=== PATIENT | female | born 1935 | race Caucasian/White ===

== ENCOUNTER 2016-10-25 18:50 | Inpatient (IN) | payer MEDICARE ==
[~2016-10-25] VITALS: Ht 147.3 cm; Wt 78.9 kg
[~2016-10-25 18:50] MED LIST: ACET325T9 PO; DIPH25CA3 PO; DIPH25CA58 PO; HYDR-2766 PO; HYDR1TAB PO; LISI40TA PO; METO100T2 PO; OMEP20TA8 PO; OMEP40CA5 PO; OXYC10TA PO; OXYC10TA45 PO; PANT40TA5 PO
--- NOTE | 2016-10-25 19:14 | PHYS DOC ---
Past Medical History Past Medical History: Anemia, Hypertension Past Surgical History: Cholecystectomy, Hysterectomy, Other Additional Past Surgical Histo: L knee, cataracts Alcohol Use: None Drug Use: None Adult General Chief Complaint Chief Complaint: HIP PAIN HPI HPI Patient is a 81 year old female who presents with a fall and right hip pain. She states she was in the bathroom and extension are she was on the floor. She states her socks slipped and she fell patient denies any trauma to her head or neck, she denies loss of consciousness. She denies back pain or abdominal pain. She does complain about right hip pain. Review of Systems Review of Systems Constitutional: Denies fever or chills [] Eyes: Denies change in visual acuity, redness, or eye pain [] HENT: Denies nasal congestion or sore throat [] Respiratory: Denies cough or shortness of breath [] Cardiovascular: No additional information not addressed in HPI [] GI: Denies abdominal pain, nausea, vomiting, bloody stools or diarrhea [] : Denies dysuria or hematuria [] Musculoskeletal: Denies back pain, positive for right hip pain Integument: Denies rash or skin lesions [] Neurologic: Denies headache, focal weakness or sensory changes [] Endocrine: Denies polyuria or polydipsia [] Current Medications Current Medications Allergies Allergies Allergies Coded Allergies Type Severity Reaction Last Updated Verified lactose Adverse Reaction Intermediate Nausea 09/09/15 Yes Physical Exam Physical Exam Constitutional: Well developed, well nourished, no acute distress, non-toxic appearance. [] HENT: Normocephalic, atraumatic, bilateral external ears normal, oropharynx moist, no oral exudates, nose normal. [] Eyes: PERRLA, EOMI, conjunctiva normal, no discharge. [] Neck: Normal range of motion, no tenderness, supple, no stridor. [] Cardiovascular:Heart rate regular rhythm, no murmur [] Lungs & Thorax: Bilateral breath sounds clear to auscultation [] Abdomen: Bowel sounds normal, soft, no tenderness, no masses, no pulsatile masses. [] Skin: Warm, dry, no erythema, no rash. [] Back: No tenderness, no CVA tenderness. [] Extremities: Tender palpation over the right hip with shortening and external rotation of the right leg, no cyanosis, no clubbing, ROM intact of left lower show many, no edema. Dorsal pedis pulse intact bilaterally Neurologic: Alert and oriented X 3, normal motor function, normal sensory function, no focal deficits noted. [] Psychologic: Affect normal, judgement normal, mood normal. [] Current Patient Data Vital Signs Vital Signs Date Time Temp Pulse Resp B/P (MAP) Pulse Ox O2 Delivery O2 Flow Rate FiO2 10/25/16 18:50 98.4 74 18 145/66 (92) 93 Room Air 98.4 EKG EKG [] Radiology/Procedures Radiology/Procedures Right hip x-ray shows intertrochanteric fracture of the right hip, no pelvis fracture noted, as interpreted by me Impressions: Hip fracture Course & Med Decision Making Course & Med Decision Making Pertinent Labs and Imaging studies reviewed. (See chart for details) Patient has a hip fracture, IV fentanyl has been ordered. Basic labs EKG and chest x-ray are pending at this time. Patient's being admitted Dr. Miner with consultation to Dr. Umaña. Interim orders have been written. Dragon Disclaimer Dragon Disclaimer This electronic medical record was generated, in whole or in part, using a voice recognition dictation system. Departure Departure Impression: Primary Impression: Hip fracture Disposition: ADMITTED INPATIENT Admitting Physician: Nimisha Miner Condition: STABLE Referrals: LESLEY BRODY MD (PCP) Problem Qualifiers Primary Impression: Hip fracture Encounter type: initial encounter Fracture type: closed Laterality: right Qualified Codes: S72.001A - Fracture of unspecified part of neck of right femur, initial encounter for closed fracture GIUSEPPE FLORES MD Oct 25, 2016 19:14
--- NOTE | 2016-10-25 20:13 | PDOC1 ---
History and Physical Date of Admission Date of Admission DATE: 10/25/16 TIME: 20:07 Identification/Chief Complaint Chief Complaint fall at home Problems: Source Source: Caregiver, Chart review, Patient History of Present Illness History of Present Illness 81 y.o very pleasant female, lives at home with dtr and uses assistive devices of ambulation prn, had a mechanical fall today from her bed to the bathroom, just 10 steps away. NO head trauma, was unable to bear weight on her Rt leg, ER, xray shows Rt intertrochanteric fx hence admitted, In pain, VS ok, labs not yet drawn, Ortho being called. Pt ahs hx TKA in past. PCP Dr. Pasquale Painting. LAst here admitted 2015 for sigmoid abscess, needing sigmoid sx and dcd to rehab , ALso hx diastolic heart failure, no COPD documented, non smoker non drinker, NO known CAD, Will also order CXR - baseline in case OR joseph AM given diastolic heart failure hx Past Medical History Cardiovascular: HTN, Hyperlipidemia, Aortic stenosis GI: Diverticulosis, GERD, GI bleed, Other Heme/Onc: Anemia NOS Hepatobiliary: No pertinent hx Psych: Other Musculoskeletal: Osteoarthritis Rheumatologic: No pertinent hx Infectious disease: No pertinent hx Renal/: No pertinent hx Endocrine: No pertinent hx Past Surgical History Past Surgical History: Appendectomy, Cholecystectomy, Cataract Removal, Total knee replacement Family History Family History: Cancer, Hypertension Social History Smoke: No ALCOHOL: none Drugs: None Current Medications Current Medications Active Scripts Active Reported Pantoprazole Sodium 40 Mg Tablet.dr 1 Tab PO DAILY08 Lisinopril 40 Mg Tablet 1 Tab PO DAILY08 Oxycodone Hcl 10 Mg Tablet 1 Tab PO BID Tylenol (Acetaminophen) 325 Mg Tablet 650 Mg PO DAILY Oxycontin (Oxycodone HCl) 10 Mg Tab.er.12h 1 Tab PO BID Omeprazole 20 Mg Tablet.dr 20 Mg PO DAILY Metoprolol Tartrate 100 Mg Tablet 100 Mg PO BID Diphenhydramine Hcl 25 Mg Capsule 25 Mg PO HS Allergies Allergies: Coded Allergies: lactose (Verified Adverse Reaction, Intermediate, Nausea, 09/09/15) ROS Review of System Rt hip pain, all else is neg, some nausea Physical Exam General: Alert, Oriented X3, Cooperative, No acute distress, Other (but in discomfort) HEENT: Atraumatic, PERRLA, EOMI Lungs: Clear to auscultation, Normal air movement Heart: S1S2, RRR, no thrills, no rubs, no gallops, no murmurs Cardiovascular: S1, S2 Breasts: Normal, Rt breast nml w/o mass, Lt breast nml w/o mass, Nipples normal Abdomen: Normal bowel sounds, Soft, No tenderness, No hepatosplenomegaly, No masses Rectal Exam: not examined PELVIC: Nml ext genitalia Extremities: Other (chronic leg swelling, RT leg externally rotated, palpable pulses) Skin: No rashes, No breakdown, No significant lesion Neuro: Normal gait, Normal speech, Strength at 5/5 X4 ext, Normal tone, Sensation intact, Cranial nerves 3-12 NL, Reflexes 2+ Psych/Mental Status: Mental status NL, Mood NL Vitals Vitals Vital Signs Date Time Temp Pulse Resp B/P (MAP) Pulse Ox O2 Delivery O2 Flow Rate FiO2 10/25/16 18:50 98.4 74 18 145/66 (92) 93 Room Air 98.4 VTE Prophylaxis Ordered VTE Prophylaxis Devices: Yes VTE Pharmacological Prophylaxi: Yes Assessment/Plan Assessment/Plan 1. RT intertrochanteric fx after mechanical fall, traumatic, closed 2. Chronic diastolic heart failure by documentation 3,. Geriatric fall risk 4. HTN, dyslipidemia - chronic stable 5. Hx elevated BS in past admits, (was on TPN0, not known DM - awaiting baseline labs' 6. HX sigmoid abscess with sigmoidectomy 2015 PLAN: Admit Ortho consult Check baseline labs including PT INR and baseline CXR AP PAin meds Awaiting home meds HOld off any NSAIDs or blood thinners in case OR joseph NPO post MN Liquid diet tonight (uninterested in food anyways tonight bec of acute events)\ Seen at [facility] and RN GREGORY LIND MD Oct 25, 2016 20:13
[2016-10-25] MEDS ORDERED: fentaNYL PF VIAL 100 MCG/2 ML VIAL IV PRN ×2 (20:15→20:45)
[2016-10-25] MEDS ORDERED: LABETALOL 20 MG/4 ML DISP.SYRIN. IVP PRN (20:15)
[2016-10-25 20:22] LABS: BASO # 0.1 x10^3/uL (0.0-0.2); BASO % 1 % (0-3); EOS % 1 % (0-3); HEMATOCRIT 40.5 % (36.0-47.0); HEMOGLOBIN 13.1 g/dL (12.0-15.5); LYMPH # 1.6 x10^3/uL (1.0-4.8); LYMPH % 14 % (24-48); MEAN CORPUSCULAR HEMOGLOBIN 26 pg (25-35); MEAN CORPUSCULAR HGB CONC 32 g/dL (31-37); MEAN CORPUSCULAR VOLUME 82 fL (79-100); MONO % 5 % (0-9); NEUT % 79 % (31-73); PLATELET COUNT 156 x10^3/uL (140-400); RED BLOOD COUNT 4.96 x10^6/uL (3.50-5.40); RED CELL DISTRIBUTION WIDTH 13.8 % (11.5-14.5); WHITE BLOOD COUNT 11.2 x10^3/uL (4.0-11.0)
[2016-10-25 20:31] LABS: PROTHROMBIN TIME PATIENT 12.3 SEC (11.7-14.0)
[2016-10-25 20:35] LABS: CALCIUM 8.8 mg/dL (8.5-10.1); CREATININE 1.4 mg/dL (0.6-1.0); GFR 35.9; MAGNESIUM 1.4 mg/dL (1.8-2.4); POTASSIUM 3.4 mmol/L (3.5-5.1)
[2016-10-25] MEDS ORDERED: ONDANSETRON PF 4 MG/2 ML VIAL. IV PRN (20:45)
[2016-10-25 20:48] LABS: CREATINE KINASE 50 U/L (26-192)
[2016-10-25 20:49] LABS: CKMB MASS < 0.5 ng/mL (0.0-3.6)
[2016-10-25] MEDS ORDERED: IV NORMAL SALINE 1000ML BAG 1,000 ML IV SCH (21:00)
[2016-10-25] MEDS ORDERED: NON FORMULARY ITEM (Oxycodone Hcl 1 TAB) PO SCH (21:00)
[2016-10-25] MEDS ORDERED: METOPROLOL TART IMMED RELEASE 50 MG TABLET. PO SCH (21:00)
[2016-10-25] MEDS: fentaNYL PF VIAL 100 MCG/2 ML VIAL IV PRN (21:09)
[2016-10-25] MEDS: METOPROLOL TART IMMED RELEASE 50 MG TABLET. PO SCH (21:28)
[2016-10-25] MEDS: diphenhydrAMINE HCL 25 MG CAPSULE PO SCH (21:28)
[2016-10-25] MEDS: MORPHINE SULFATE 2 MG/ML DISP.SYRIN. IV PRN ×2 (21:29→23:41)
[2016-10-25] MEDS: ONDANSETRON PF 4 MG/2 ML VIAL. IV PRN (21:29)
[2016-10-25] MEDS: oxyCODONE ER 10 MG TAB.ER.12H PO SCH (21:29)
[2016-10-25 23:00] VITALS: BP 161/67
[2016-10-25] MEDS ORDERED: oxyCODONE IR 5 MG TABLET PO PRN (23:30)
[2016-10-26] MEDS: MORPHINE SULFATE 2 MG/ML DISP.SYRIN. IV PRN (02:36)
[2016-10-26 03:00] VITALS: BP 165/76
[2016-10-26] MEDS: fentaNYL PF VIAL 100 MCG/2 ML VIAL IV PRN ×2 (03:01→23:45)
[2016-10-26 04:00] LABS: BASO % 0 % (0-3); EOS % 0 % (0-3); HEMATOCRIT 34.4 % (36.0-47.0); HEMOGLOBIN 11.5 g/dL (12.0-15.5); LYMPH # 0.8 x10^3/uL (1.0-4.8); LYMPH % 9 % (24-48); MEAN CORPUSCULAR HEMOGLOBIN 27 pg (25-35); MEAN CORPUSCULAR HGB CONC 33 g/dL (31-37); MEAN CORPUSCULAR VOLUME 80 fL (79-100); MONO % 5 % (0-9); NEUT % 85 % (31-73); PLATELET COUNT 143 x10^3/uL (140-400); RED BLOOD COUNT 4.32 x10^6/uL (3.50-5.40); RED CELL DISTRIBUTION WIDTH 13.6 % (11.5-14.5); WHITE BLOOD COUNT 8.4 x10^3/uL (4.0-11.0)
[2016-10-26 04:45] LABS: CALCIUM 8.2 mg/dL (8.5-10.1); CREATININE 1.3 mg/dL (0.6-1.0); GFR 39.1; POTASSIUM 3.5 mmol/L (3.5-5.1)
--- NOTE | 2016-10-26 05:38 | ACF ---
Admission Forms Criteria MUSCULOSKELETAL DISEASE GRG Clinical Indications for Admission to Inpatient Care (Place 'X' for any and all applicable criteria): Hospital admission is needed for appropriate care of the patient because of 1 or more of the following: [X ]I. Fracture, dislocation, or other musculoskeletal injury requiring inpatient care(medical) as indicated by 1 or more of the following(4)(5)(6)(7) [ ]a) Vertebral fracture requiring observation for instability or neurologic compromise (8) [ ]b) Compartment syndrome (proven or cannot be ruled out during observation level of care) (9) [ ]c) Limb-threatening injury [ ]d) Major injury requiring inpatient stabilization such as traction initiation or external fixation before internal fixation or closure of complex or open fracture [ X]e) Major injury requiring inpatient treatment after emergency or observation level care (as appropriate) [ ]f) Severe pain requiring acute inpatient management [ ]g) Injury with suspicion of abuse or neglect (eg., child, dependent elderly) [ ]II. Newly diagnosed or suspected bone, joint, or orthopedic device infection (e.g., osteomyelitis, septic arthritis) needing 1 or more of the following(1)(2)(3) [ ]a) IV antibiotics that cannot be initiated in other than inpatient setting (e.g., patient too unstable or home infusion not available) [ ]b) Device removal or replacement [ ]c) Bone or soft tissue debridement [ ]d) Joint drainage (drain placement or repetitive aspirations) [ ]III. Severe rheumatologic disease (e.g., systemic lupus erythematosus, rheumatoid arthritis) with complications or comorbidities (Also use Optimal Recovery Care Criteria or General Recovery Criteria as appropriate on the basis of predominant condition), including 1 or more of the following( 10)(11)(12)(13) [ ]a) Severe infection (e.g., [employer]OP[employer] infection, sepsis) (14) [ ]b) Respiratory complications, including 1 or more of the following : [ ]i) Pleural effusion with respiratory compromise [ ]ii) Pulmonary hypertension with congestive failure [ ]iii) Respiratory failure [ ]iv) Pulmonary hemorrhage (15) [ ]c) Hematologic disease, including 1 or more of the following: [ ]i) Coagulopathy with bleeding [ ]ii) Thrombosis with hypercoagulable state [ ]iii) Thrombotic thrombocytopenic purpura [ ]d) Cerebritis with seizures, psychosis, or other severe abnormalities [ ]e) Vertebral destruction with monitoring needed for cervical myelopathy& possible respiratory compromise [ ]f) Exacerbation that requires inpatient treatment (e.g., intravenous immunosuppression) (16) [ ]g) Acute renal failure [ ]h) Cerebritis with seizures, psychosis, Altered mental status, or other neurologic abnormalities [ ]i) Pericardial effusion with tamponade [ ]j) Vertebral destruction, with monitoring needed for cervical myelopathy and possible respiratory compromise [ ]IV. Severe vasculitis with complications or comorbidities (Also use Optimal Recovery Care Criteria General Recovery Criteria as appropriate on the basis of predominant condition), including 1 or more of the following(11)(12)(17)(18)(19)(20) [ ]a) Exacerbation that requires inpatient treatment (e.g., intravenous immunosuppression) (19)(21) [ ]b) Pulmonary hemorrhage (15) [ ]c) [employer] vasculitis with seizures, psychosis, Altered mental status that is severe or persistent, or other severe abnormalities (22) [ ]d) Cerebral infarction [ ]e) Gastrointestinal ischemia [ ]f) Gangrene or threatened amputation [ ]g) Renal failure (16) [ ]h) Other significant complications of vasculitis ( eg., tissue or organ ischemia, organ dysfunction ) [ ]V. Severe myopathy as indicated by 1 or more of the following (28)(29) [ ]a) New onset of airway compromise or inability to swallow [ ]b) Respiratory deterioration with observation needed for impending respiratory failure [ ]c) Exacerbation that requires inpatient treatment (e.g., intravenous immunosuppression) [ ]. Severe crystal gout (arthropathy) indicated by 1 or more of the following (23)(24) [ ]a) Severe pain requiring acute inpatient management [ ]b) Exacerbation that requires inpatient treatment (e.g., intravenous treatment) [ ]VII.Rhabdomyolysis and 1 or more of the following (25)(26)(27) [ ]a) Acute renal failure [ ]b) Need for intravenous hydration after emergency or observation level care (as appropriate) [ ]c) Inability to maintain oral hydration [ ]d) Change in mental status [ ]e) Electrolyte abnormality that remains after emergency or observation level care (as appropriate) [ ]VIII Post amputation complication, as indicated by ANY ONE of the following [ ]a) Infection [ ]b) Dehiscence [ ]c) Myodesis failure [ ]IX. Severe pain requiring acute inpatient management due to musculoskeletal condition [ ]X. Musculoskeletal Disease and ALL of the following: [ ]a) Symptom or finding for which emergency and observation care have failed or are not considered appropriate (Use General Criteria: Observation Care as appropriate) [ ]b) Presence of ANY ONE of the following [ ]i) A General Admission Criteria [ ]ii) A Pediatric General Admission Criteria The original [facility] [employer] content created by [facility] has been revised. The portions of the content which have been revised are identified through the use of italic text or in bold, and [facility] has neither reviewed nor approved the modified material. All other unmodified content is copyright [facility]. Please see references footnoted in the original [facility] edition 2016 Admission Criteria Met?: Yes BALJIT GIFFORD Oct 26, 2016 05:38
[2016-10-26 07:00] VITALS: BP 195/82
[2016-10-26] MEDS ORDERED: IV RINGERS,LACTATED 1000ML 1,000 ML IV SCH (07:16)
[2016-10-26] MEDS ORDERED: ONDANSETRON PF 4 MG/2 ML VIAL. IV PRN ×2 (07:30→23:30)
[2016-10-26] MEDS ORDERED: fentaNYL PF VIAL 100 MCG/2 ML VIAL IV PRN ×2 (07:30→23:30)
[2016-10-26] MEDS ORDERED: PROCHLORPERAZINE 10 MG/2 ML VIAL. IV PRN (07:30)
[2016-10-26] MEDS ORDERED: LIDOCAINE 1% 1 ML SYRINGE. ID PRN (07:30)
[2016-10-26] MEDS ORDERED: MORPHINE SULFATE 2 MG/ML DISP.SYRIN. IV PRN (07:30)
[2016-10-26] MEDS ORDERED: PANTOPRAZOLE 40 MG TABLET.DR. PO SCH (07:30)
[2016-10-26] MEDS ORDERED: HYDROmorphone 2 MG/ML VIAL IV PRN (07:30)
--- NOTE | 2016-10-26 07:39 | EKG ---
[facility] [address] [place] [address] Test Date: 2016-10-26 Test Time: 07:37:25 Pat Name: BEBE FLETCHER Department: Room: [facility] Gender: F [employer] Machine Operator: ROCIO : [id number] Requested By: GREGORY LIND Order Number: [id number] Reading MD: Trey Peace Measurements Intervals [place] Rate: 71 P: 50 MO: 178 QRS: 1 QRSD: 76 T: 55 QT: 434 QTc: 472 Interpretive Statements SINUS RHYTHM Electronically Signed On 10-26-2016 12:06:40 CDT by Trey Peace
--- NOTE | 2016-10-26 07:48 | RAD ---
Exam performed: Single view pelvis and 2 views right hip. History: Right hip pain status post fall. Date of service: 10/25/16. Comparison: Single view pelvis from 11/01/15. Findings: Single AP view pelvis and AP and frog leg lateral view of the right hip are obtained. There is a comminuted intertrochanteric fracture of the right femoral neck. Bilateral hip joints as well as sacroiliac joints are preserved. Spondylotic changes. Scattered stool in the colon. Impression: Comminuted intertrochanteric fracture of the right femoral neck.
--- NOTE | 2016-10-26 07:55 | RAD ---
Exam performed: One view chest. History: Preop evaluation, fracture. Date of service: 10/25/16. Comparison: One view chest from 09/04/15. Single AP upright portable view chest findings: Heart size is within limits of normal. Ectatic tortuous aorta. Moderate hiatal hernia. Lungs are essentially clear. Impression: No acute finding seen in the single view chest
[2016-10-26] MEDS: METOPROLOL TART IMMED RELEASE 50 MG TABLET. PO SCH ×2 (08:35→21:00)
[2016-10-26] MEDS: LISINOPRIL 40 MG TABLET. PO SCH (08:35)
[2016-10-26] MEDS: PANTOPRAZOLE 40 MG TABLET.DR. PO SCH (08:35)
[2016-10-26] MEDS: oxyCODONE ER 10 MG TAB.ER.12H PO SCH ×2 (08:36→21:00)
[2016-10-26] MEDS: ACETAMINOPHEN 325 MG TABLET. PO SCH (08:36)
[2016-10-26 08:57] LABS: PLT ESTIMATE ADEQUATE (ADEQUATE)
[2016-10-26] MEDS ORDERED: hydrALAZINE 20 MG/ML VIAL. IVP PRN (10:30)
[2016-10-26] MEDS ORDERED: LABETALOL 20 MG/4 ML DISP.SYRIN. IVP PRN (10:30)
--- NOTE | 2016-10-26 10:49 | PDOC ---
PROGRESS NOTES Chief Complaint Chief Complaint 1. RT intertrochanteric fx after mechanical fall, traumatic, closed 2. Chronic diastolic heart failure 3,. Geriatric fall risk, weakness, acquired 4. HTN, dyslipidemia - chronic stable 5. Hx elevated BS in past admits, 6. HX sigmoid abscess with sigmoidectomy 2015 History of Present Illness History of Present Illness Ortho consult pending, surg sched for 7or [address] Valencia briscoe pain OK while still cont home meds Vitals Vitals Vital Signs Date Time Temp Pulse Resp B/P (MAP) Pulse Ox O2 Delivery O2 Flow Rate FiO2 10/26/16 08:36 94 Room Air 10/26/16 08:35 73 195/82 10/26/16 07:00 99.5 18 99.5 Physical Exam General: Alert, Oriented X3, Cooperative, No acute distress, Other (but in discomfort) Lungs: Clear Abdomen: Normal bowel sounds, Soft, No tenderness, No hepatosplenomegaly, No masses Extremities: Other (chronic leg swelling, RT leg externally rotated, palpable pulses) Skin: No rashes, No breakdown, No significant lesion Labs LABS Laboratory Tests Test 10/25/16 20:15 10/26/16 03:49 White Blood Count 11.2 x10^3/uL (4.0-11.0) 8.4 x10^3/uL (4.0-11.0) Red Blood Count 4.96 x10^6/uL (3.50-5.40) 4.32 x10^6/uL (3.50-5.40) Hemoglobin 13.1 g/dL (12.0-15.5) 11.5 g/dL (12.0-15.5) Hematocrit 40.5 % (36.0-47.0) 34.4 % (36.0-47.0) Mean Corpuscular Volume 82 fL (79-100) 80 fL (79-100) Mean Corpuscular Hemoglobin 26 pg (25-35) 27 pg (25-35) Mean Corpuscular Hemoglobin Concent 32 g/dL (31-37) 33 g/dL (31-37) Red Cell Distribution Width 13.8 % (11.5-14.5) 13.6 % (11.5-14.5) Platelet Count 156 x10^3/uL (140-400) 143 x10^3/uL (140-400) Neutrophils (%) (Auto) 79 % (31-73) 85 % (31-73) Lymphocytes (%) (Auto) 14 % (24-48) 9 % (24-48) Monocytes (%) (Auto) 5 % (0-9) 5 % (0-9) Eosinophils (%) (Auto) 1 % (0-3) 0 % (0-3) Basophils (%) (Auto) 1 % (0-3) 0 % (0-3) Neutrophils # (Auto) 8.8 x10^3uL (1.8-7.7) 7.1 x10^3uL (1.8-7.7) Lymphocytes # (Auto) 1.6 x10^3/uL (1.0-4.8) 0.8 x10^3/uL (1.0-4.8) Monocytes # (Auto) 0.6 x10^3/uL (0.0-1.1) 0.4 x10^3/uL (0.0-1.1) Eosinophils # (Auto) 0.1 x10^3/uL (0.0-0.7) 0.0 x10^3/uL (0.0-0.7) Basophils # (Auto) 0.1 x10^3/uL (0.0-0.2) 0.0 x10^3/uL (0.0-0.2) Prothrombin Time 12.3 SEC (11.7-14.0) Prothromb Time International Ratio 1.0 (0.8-1.1) Sodium Level 140 mmol/L (136-145) 140 mmol/L (136-145) Potassium Level 3.4 mmol/L (3.5-5.1) 3.5 mmol/L (3.5-5.1) Chloride Level 102 mmol/L (98-107) 102 mmol/L (98-107) Carbon Dioxide Level 27 mmol/L (21-32) 29 mmol/L (21-32) Anion Gap 11 (6-14) 9 (6-14) Blood Urea Nitrogen 34 mg/dL (7-20) 27 mg/dL (7-20) Creatinine 1.4 mg/dL (0.6-1.0) 1.3 mg/dL (0.6-1.0) Estimated GFR (Cockcroft-Gault) 35.9 39.1 Glucose Level 159 mg/dL (70-99) 146 mg/dL (70-99) Calcium Level 8.8 mg/dL (8.5-10.1) 8.2 mg/dL (8.5-10.1) Magnesium Level 1.4 mg/dL (1.8-2.4) Creatine Kinase 50 U/L (26-192) Creatine Kinase MB (Mass) < 0.5 ng/mL (0.0-3.6) Creatine Kinase MB Relative Index 1.0 % (0-4) Troponin I Quantitative < 0.017 ng/mL (0.000-0.055) Thyroid Stimulating Hormone (TSH) 6.780 uIU/mL (0.358-3.74) Segmented Neutrophils % 94 % (35-66) Band Neutrophils % 1 % (0-9) Lymphocytes % 4 % (24-48) Monocytes % 1 % (0-10) Platelet Estimate Adequate (ADEQUATE) Review of Systems Review of Systems pain OK no n.v.d she feels ready for surg Assessment and Plan Assessmemt and Plan Problems Medical Problems: (1) Hip fracture Status: Acute Problems: Comment Review of Relevant I have reviewed the following items jmiy (where applicable) has been applied. Labs Laboratory Tests Test 10/25/16 20:15 10/26/16 03:49 White Blood Count 11.2 x10^3/uL (4.0-11.0) 8.4 x10^3/uL (4.0-11.0) Red Blood Count 4.96 x10^6/uL (3.50-5.40) 4.32 x10^6/uL (3.50-5.40) Hemoglobin 13.1 g/dL (12.0-15.5) 11.5 g/dL (12.0-15.5) Hematocrit 40.5 % (36.0-47.0) 34.4 % (36.0-47.0) Mean Corpuscular Volume 82 fL (79-100) 80 fL (79-100) Mean Corpuscular Hemoglobin 26 pg (25-35) 27 pg (25-35) Mean Corpuscular Hemoglobin Concent 32 g/dL (31-37) 33 g/dL (31-37) Red Cell Distribution Width 13.8 % (11.5-14.5) 13.6 % (11.5-14.5) Platelet Count 156 x10^3/uL (140-400) 143 x10^3/uL (140-400) Neutrophils (%) (Auto) 79 % (31-73) 85 % (31-73) Lymphocytes (%) (Auto) 14 % (24-48) 9 % (24-48) Monocytes (%) (Auto) 5 % (0-9) 5 % (0-9) Eosinophils (%) (Auto) 1 % (0-3) 0 % (0-3) Basophils (%) (Auto) 1 % (0-3) 0 % (0-3) Neutrophils # (Auto) 8.8 x10^3uL (1.8-7.7) 7.1 x10^3uL (1.8-7.7) Lymphocytes # (Auto) 1.6 x10^3/uL (1.0-4.8) 0.8 x10^3/uL (1.0-4.8) Monocytes # (Auto) 0.6 x10^3/uL (0.0-1.1) 0.4 x10^3/uL (0.0-1.1) Eosinophils # (Auto) 0.1 x10^3/uL (0.0-0.7) 0.0 x10^3/uL (0.0-0.7) Basophils # (Auto) 0.1 x10^3/uL (0.0-0.2) 0.0 x10^3/uL (0.0-0.2) Prothrombin Time 12.3 SEC (11.7-14.0) Prothromb Time International Ratio 1.0 (0.8-1.1) Sodium Level 140 mmol/L (136-145) 140 mmol/L (136-145) Potassium Level 3.4 mmol/L (3.5-5.1) 3.5 mmol/L (3.5-5.1) Chloride Level 102 mmol/L (98-107) 102 mmol/L (98-107) Carbon Dioxide Level 27 mmol/L (21-32) 29 mmol/L (21-32) Anion Gap 11 (6-14) 9 (6-14) Blood Urea Nitrogen 34 mg/dL (7-20) 27 mg/dL (7-20) Creatinine 1.4 mg/dL (0.6-1.0) 1.3 mg/dL (0.6-1.0) Estimated GFR (Cockcroft-Gault) 35.9 39.1 Glucose Level 159 mg/dL (70-99) 146 mg/dL (70-99) Calcium Level 8.8 mg/dL (8.5-10.1) 8.2 mg/dL (8.5-10.1) Magnesium Level 1.4 mg/dL (1.8-2.4) Creatine Kinase 50 U/L (26-192) Creatine Kinase MB (Mass) < 0.5 ng/mL (0.0-3.6) Creatine Kinase MB Relative Index 1.0 % (0-4) Troponin I Quantitative < 0.017 ng/mL (0.000-0.055) Thyroid Stimulating Hormone (TSH) 6.780 uIU/mL (0.358-3.74) Segmented Neutrophils % 94 % (35-66) Band Neutrophils % 1 % (0-9) Lymphocytes % 4 % (24-48) Monocytes % 1 % (0-10) Platelet Estimate Adequate (ADEQUATE) Laboratory Tests Test 10/25/16 20:15 10/26/16 03:49 White Blood Count 11.2 x10^3/uL (4.0-11.0) 8.4 x10^3/uL (4.0-11.0) Red Blood Count 4.96 x10^6/uL (3.50-5.40) 4.32 x10^6/uL (3.50-5.40) Hemoglobin 13.1 g/dL (12.0-15.5) 11.5 g/dL (12.0-15.5) Hematocrit 40.5 % (36.0-47.0) 34.4 % (36.0-47.0) Mean Corpuscular Volume 82 fL (79-100) 80 fL (79-100) Mean Corpuscular Hemoglobin 26 pg (25-35) 27 pg (25-35) Mean Corpuscular Hemoglobin Concent 32 g/dL (31-37) 33 g/dL (31-37) Red Cell Distribution Width 13.8 % (11.5-14.5) 13.6 % (11.5-14.5) Platelet Count 156 x10^3/uL (140-400) 143 x10^3/uL (140-400) Neutrophils (%) (Auto) 79 % (31-73) 85 % (31-73) Lymphocytes (%) (Auto) 14 % (24-48) 9 % (24-48) Monocytes (%) (Auto) 5 % (0-9) 5 % (0-9) Eosinophils (%) (Auto) 1 % (0-3) 0 % (0-3) Basophils (%) (Auto) 1 % (0-3) 0 % (0-3) Neutrophils # (Auto) 8.8 x10^3uL (1.8-7.7) 7.1 x10^3uL (1.8-7.7) Lymphocytes # (Auto) 1.6 x10^3/uL (1.0-4.8) 0.8 x10^3/uL (1.0-4.8) Monocytes # (Auto) 0.6 x10^3/uL (0.0-1.1) 0.4 x10^3/uL (0.0-1.1) Eosinophils # (Auto) 0.1 x10^3/uL (0.0-0.7) 0.0 x10^3/uL (0.0-0.7) Basophils # (Auto) 0.1 x10^3/uL (0.0-0.2) 0.0 x10^3/uL (0.0-0.2) Prothrombin Time 12.3 SEC (11.7-14.0) Prothromb Time International Ratio 1.0 (0.8-1.1) Sodium Level 140 mmol/L (136-145) 140 mmol/L (136-145) Potassium Level 3.4 mmol/L (3.5-5.1) 3.5 mmol/L (3.5-5.1) Chloride Level 102 mmol/L (98-107) 102 mmol/L (98-107) Carbon Dioxide Level 27 mmol/L (21-32) 29 mmol/L (21-32) Anion Gap 11 (6-14) 9 (6-14) Blood Urea Nitrogen 34 mg/dL (7-20) 27 mg/dL (7-20) Creatinine 1.4 mg/dL (0.6-1.0) 1.3 mg/dL (0.6-1.0) Estimated GFR (Cockcroft-Gault) 35.9 39.1 Glucose Level 159 mg/dL (70-99) 146 mg/dL (70-99) Calcium Level 8.8 mg/dL (8.5-10.1) 8.2 mg/dL (8.5-10.1) Magnesium Level 1.4 mg/dL (1.8-2.4) Creatine Kinase 50 U/L (26-192) Creatine Kinase MB (Mass) < 0.5 ng/mL (0.0-3.6) Creatine Kinase MB Relative Index 1.0 % (0-4) Troponin I Quantitative < 0.017 ng/mL (0.000-0.055) Thyroid Stimulating Hormone (TSH) 6.780 uIU/mL (0.358-3.74) Segmented Neutrophils % 94 % (35-66) Band Neutrophils % 1 % (0-9) Lymphocytes % 4 % (24-48) Monocytes % 1 % (0-10) Platelet Estimate Adequate (ADEQUATE) Medications Current Medications Fentanyl Citrate (Fentanyl 2ml Vial) 25 mcg PRN Q15MIN PRN IV PAIN GREATER THAN 3/10 Last administered on 10/25/16 20:18; Start 10/25/16 at 20:15; Stop at 20:45; Status DC Ondansetron HCl (Zofran) 4 mg PRN Q6HRS PRN IV NAUSEA/VOMITING Last administered on 10/25/16 21:29; Start 10/25/16 at 20:15 Fentanyl Citrate (Fentanyl 2ml Vial) 50 mcg PRN Q2HR PRN IV pain Last administered on 10/26/16 03:01; Start 10/25/16 at 20:15 Morphine Sulfate 2 mg PRN Q2HR PRN IV pain Last administered on 10/26/16 02:36 ; Start 10/25/16 at 20:15 Labetalol HCl (Normodyne) 10 mg PRN Q2HR PRN IVP 160/100; Start 10/25/16 at 20: 15; Stop 8/28/17 at 10:28; Status DC Acetaminophen (Tylenol) 650 mg DAILY PO Last administered on 10/26/16 08:36; Start 10/26/16 at 09:00 Diphenhydramine HCl (Benadryl) 25 mg HS PO Last administered on 10/25/16 21:28 ; Start 10/25/16 at 21:00 Lisinopril (Prinivil) 40 mg DAILY08 PO Last administered on 10/26/16 08:35; Start 10/26/16 at 08:00 Oxycodone HCl (OxyCONTIN) 10 mg BID PO Last administered on 10/26/16 08:36; Start 10/25/16 at 21:00 Pantoprazole Sodium (Protonix) 40 mg DAILYAC PO ; Start 10/26/16 at 07:30; Stop 10/26/16 at 07:30; Status DC Metoprolol Tartrate (Lopressor) 50 mg BID PO ; Start 10/25/16 at 21:00; Stop at 21:00; Status DC Pantoprazole Sodium (Protonix) 40 mg DAILYAC PO Last administered on 10/26/16 08:35; Start 10/26/16 at 07:30 Non-Formulary Medication 1 tab BID PO ; Start 10/25/16 at 21:00; Stop 10/25/16 at 21:00; Status DC Metoprolol Tartrate (Lopressor) 100 mg BID PO Last administered on 10/26/16 08 :35; Start 10/25/16 at 21:00 Ondansetron HCl (Zofran) 4 mg PRN Q8HRS PRN IV NAUSEA/VOMITING; Start 10/25/16 at 20:45; Stop 10/25/16 at 20:45; Status DC Fentanyl Citrate (Fentanyl 2ml Vial) 25 mcg PRN Q2HR PRN IV PAIN; Start at 20:45; Stop 10/25/16 at 20:45; Status DC Sodium Chloride 1,000 ml @ 75 mls/hr [id number] IV Last administered on 21:30; Start 10/25/16 at 21:00 Oxycodone HCl (Roxicodone) 10 mg PRN Q6HRS PRN PO PAIN; Start 10/25/16 at 23:30 Oxycodone HCl (Roxicodone) 20 mg PRN Q6HRS PRN PO PAIN Last administered on t 03:02; Start 10/25/16 at 23:30 Ondansetron HCl (Zofran) 4 mg PRN Q6HRS PRN IV NAUSEA/VOMITING; Start 10/26/16 at 07:30; Stop 10/27/16 at 07:29 Fentanyl Citrate (Fentanyl 2ml Vial) 25 mcg PRN Q5MIN PRN IV MILD PAIN; Start 10/26/16 at 07:30; Stop 10/27/16 at 07:29 Fentanyl Citrate (Fentanyl 2ml Vial) 50 mcg PRN Q5MIN PRN IV MODERATE PAIN; Start 10/26/16 at 07:30; Stop 10/27/16 at 07:29 Morphine Sulfate 1 mg PRN Q10MIN PRN IV SEVERE PAIN; Start 10/26/16 at 07:30; Stop 10/27/16 at 07:29 Ringer's Solution 1,000 ml @ 30 mls/hr Q24H IV ; Start 10/26/16 at 07:16; Stop 10/26/16 at 19:15 Lidocaine HCl 2 ml PRN 1X PRN ID PRIOR TO IV START; Start 10/26/16 at 07:30; Stop 10/27/16 at 07:29 Hydromorphone HCl (Dilaudid) 0.5 mg PRN Q10MIN PRN IV SEV PAIN, Second choice; Start 10/26/16 at 07:30; Stop 10/27/16 at 07:29 Prochlorperazine Edisylate (Compazine) 5 mg PACU PRN PRN IV NAUSEA, MRX1; Start 10/26/16 at 07:30; Stop 10/27/16 at 07:29 Labetalol HCl (Normodyne) 20 mg PRN Q2HR PRN IVP 160/100; Start 10/26/16 at 10: 30 Hydralazine HCl (Apresoline) 10 mg PRN Q4HRS PRN IVP ELEVATED BP, SEE COMMENTS ; Start 10/26/16 at 10:30 Active Scripts Active Reported Pantoprazole Sodium 40 Mg Tablet.dr 1 Tab PO DAILY08 Lisinopril 40 Mg Tablet 1 Tab PO DAILY08 Oxycodone Hcl 10 Mg Tablet 1-2 Tab PO PRN QID PRN Tylenol (Acetaminophen) 325 Mg Tablet 650 Mg PO DAILY Oxycontin (Oxycodone HCl) 10 Mg Tab.er.12h 1 Tab PO BID Omeprazole 20 Mg Tablet.dr 20 Mg PO DAILY Metoprolol Tartrate 100 Mg Tablet 100 Mg PO BID Diphenhydramine Hcl 25 Mg Capsule 25 Mg PO HS Vitals/I & O Vital Sign - Last 24 Hours 10/25/16 10/25/16 10/25/16 10/25/16 18:50 20:11 20:51 21:28 Temp 98.4 98.4 Pulse 74 72 74 74 Resp 18 18 18 B/P (MAP) 145/66 (92) 161/71 (101) 169/86 (113) 169/86 Pulse Ox 93 97 97 O2 Delivery Room Air Room Air Room Air 10/25/16 10/25/16 10/25/16 10/25/16 21:29 21:29 23:00 23:41 Temp 98.6 98.6 Pulse 75 Resp 20 20 19 20 B/P (MAP) 161/67 (98) Pulse Ox 97 97 95 97 O2 Delivery Room Air Room Air Room Air Room Air 10/26/16 10/26/16 10/26/16 10/26/16 01:16 01:29 02:36 03:00 Temp 98.2 98.2 Pulse 74 Resp 20 20 18 B/P (MAP) 165/76 (105) Pulse Ox 97 97 95 O2 Delivery Room Air Room Air Room Air Room Air 10/26/16 10/26/16 10/26/16 10/26/16 03:01 03:02 03:06 03:31 Resp 20 20 20 20 Pulse Ox 97 97 97 97 O2 Delivery Room Air Room Air Room Air Room Air 10/26/16 10/26/16 10/26/16 10/26/16 04:02 07:00 08:00 08:35 Temp 99.5 99.5 Pulse 73 73 Resp 20 18 B/P (MAP) 195/82 (119) 195/82 Pulse Ox 97 94 O2 Delivery Room Air Room Air Room Air 10/26/16 10/26/16 08:35 08:36 Pulse 73 B/P (MAP) 195/82 Pulse Ox 94 O2 Delivery Room Air Intake and Output 10/25/16 10/25/16 10/26/16 15:00 23:00 07:00 Intake Total 110 ml Output Total 750 ml Balance -640 ml MIGUELITO TELLO MD Oct 26, 2016 10:48
[2016-10-26 11:00] VITALS: BP 124/60
[2016-10-26] MEDS: POTASSIUM CL 20MEQ D5-0.45NACL 1,000 ML IV SCH (11:29)
--- NOTE | 2016-10-26 14:21 | PDOC2 ---
CONSULT Date of Consult Date of Consult DATE: 10/26/16 Reason for Consult Reason for Consult: Right hip fracture Identification/Chief Complaint Chief Complaint Right hip pain Problems: Source Source: Chart review, Patient History of Present Illness Reason for Visit: Ms. Mota is an 81 year old female patient admitted with right hip fracture. She lives at home with her daughter and fell last night while trying to get from the bedroom to the bathroom. She states the bathroom is only about ten steps from the bedroom, so she wasn't using an assistive device at the time she fell. She state her leg just gave out on her, causing her to fall onto her right hip. She denies loss of consciousness or hitting her head. The right hip is the only thing that is painful at this time. 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), Colon Resection (one year ago) Family History Family History: Cancer (father - prostate), Hypertension Social History No ALCOHOL: none Drugs: None Lives: with Family (daughter) Current Problem List Problem List Problems Medical Problems: (1) Hip fracture Status: Acute Current Medications Current Medications Current Medications Fentanyl Citrate (Fentanyl 2ml Vial) 25 mcg PRN Q15MIN PRN IV PAIN GREATER THAN 3/10 Last administered on 10/25/16 20:18; Start 10/25/16 at 20:15; Stop at 20:45; Status DC Ondansetron HCl (Zofran) 4 mg PRN Q6HRS PRN IV NAUSEA/VOMITING Last administered on 10/25/16 21:29; Start 10/25/16 at 20:15 Fentanyl Citrate (Fentanyl 2ml Vial) 50 mcg PRN Q2HR PRN IV pain Last administered on 10/26/16 03:01; Start 10/25/16 at 20:15 Morphine Sulfate 2 mg PRN Q2HR PRN IV pain Last administered on 10/26/16 02:36 ; Start 10/25/16 at 20:15 Labetalol HCl (Normodyne) 10 mg PRN Q2HR PRN IVP 160/100; Start 10/25/16 at 20: 15; Stop 10/26/16 at 10:28; Status DC Acetaminophen (Tylenol) 650 mg DAILY PO Last administered on 10/26/16 08:36; Start 10/26/16 at 09:00 Diphenhydramine HCl (Benadryl) 25 mg HS PO Last administered on 10/25/16 21:28 ; Start 10/25/16 at 21:00 Lisinopril (Prinivil) 40 mg DAILY08 PO Last administered on 10/26/16 08:35; Start 10/26/16 at 08:00 Oxycodone HCl (OxyCONTIN) 10 mg BID PO Last administered on 10/26/16 08:36; Start 10/25/16 at 21:00 Pantoprazole Sodium (Protonix) 40 mg DAILYAC PO ; Start 10/26/16 at 07:30; Stop 10/26/16 at 07:30; Status DC Metoprolol Tartrate (Lopressor) 50 mg BID PO ; Start 10/25/16 at 21:00; Stop at 21:00; Status DC Pantoprazole Sodium (Protonix) 40 mg DAILYAC PO Last administered on 10/26/16 08:35; Start 10/26/16 at 07:30 Non-Formulary Medication 1 tab BID PO ; Start 10/25/16 at 21:00; Stop 10/25/16 at 21:00; Status DC Metoprolol Tartrate (Lopressor) 100 mg BID PO Last administered on 10/26/16 08 :35; Start 10/25/16 at 21:00 Ondansetron HCl (Zofran) 4 mg PRN Q8HRS PRN IV NAUSEA/VOMITING; Start 10/25/16 at 20:45; Stop 10/25/16 at 20:45; Status DC Fentanyl Citrate (Fentanyl 2ml Vial) 25 mcg PRN Q2HR PRN IV PAIN; Start at 20:45; Stop 10/25/16 at 20:45; Status DC Sodium Chloride 1,000 ml @ 75 mls/hr [id number] IV Last administered on 21:30; Start 10/25/16 at 21:00; Stop 10/26/16 at 11:14; Status DC Oxycodone HCl (Roxicodone) 10 mg PRN Q6HRS PRN PO PAIN; Start 10/25/16 at 23:30 Oxycodone HCl (Roxicodone) 20 mg PRN Q6HRS PRN PO PAIN Last administered on t 03:02; Start 10/25/16 at 23:30 Ondansetron HCl (Zofran) 4 mg PRN Q6HRS PRN IV NAUSEA/VOMITING; Start 10/26/16 at 07:30; Stop 10/27/16 at 07:29 Fentanyl Citrate (Fentanyl 2ml Vial) 25 mcg PRN Q5MIN PRN IV MILD PAIN; Start 10/26/16 at 07:30; Stop 10/27/16 at 07:29 Fentanyl Citrate (Fentanyl 2ml Vial) 50 mcg PRN Q5MIN PRN IV MODERATE PAIN; Start 10/26/16 at 07:30; Stop 10/27/16 at 07:29 Morphine Sulfate 1 mg PRN Q10MIN PRN IV SEVERE PAIN; Start 10/26/16 at 07:30; Stop 10/27/16 at 07:29 Ringer's Solution 1,000 ml @ 30 mls/hr Q24H IV ; Start 10/26/16 at 07:16; Stop 10/26/16 at 19:15 Lidocaine HCl 2 ml PRN 1X PRN ID PRIOR TO IV START; Start 10/26/16 at 07:30; Stop 10/27/16 at 07:29 Hydromorphone HCl (Dilaudid) 0.5 mg PRN Q10MIN PRN IV SEV PAIN, Second choice; Start 10/26/16 at 07:30; Stop 10/27/16 at 07:29 Prochlorperazine Edisylate (Compazine) 5 mg PACU PRN PRN IV NAUSEA, MRX1; Start 10/26/16 at 07:30; Stop 10/27/16 at 07:29 Labetalol HCl (Normodyne) 20 mg PRN Q2HR PRN IVP 160/100; Start 10/26/16 at 10: 30 Hydralazine HCl (Apresoline) 10 mg PRN Q4HRS PRN IVP ELEVATED BP, SEE COMMENTS ; Start 10/26/16 at 10:30 Potassium Chloride/Dextrose/ Sod Cl 1,000 ml @ 100 mls/hr Q10H IV Last administered on 10/26/16t 11:29; Start 10/26/16 at 11:30 Active Scripts Active Reported Pantoprazole Sodium 40 Mg Tablet.dr 1 Tab PO DAILY08 Lisinopril 40 Mg Tablet 1 Tab PO DAILY08 Oxycodone Hcl 10 Mg Tablet 1-2 Tab PO PRN QID PRN Tylenol (Acetaminophen) 325 Mg Tablet 650 Mg PO DAILY Oxycontin (Oxycodone HCl) 10 Mg Tab.er.12h 1 Tab PO BID Omeprazole 20 Mg Tablet.dr 20 Mg PO DAILY Metoprolol Tartrate 100 Mg Tablet 100 Mg PO BID Diphenhydramine Hcl 25 Mg Capsule 25 Mg PO HS Allergies Allergies: Coded Allergies: lactose (Verified Adverse Reaction, Intermediate, Nausea, 09/09/15) Physical Exam General: Alert, Oriented X3, Cooperative, No acute distress HEENT: Atraumatic, EOMI Lungs: Normal air movement Heart: Regular rate Abdomen: Soft Extremities: No clubbing, No cyanosis, Normal pulses Skin: No rashes, No breakdown, No significant lesion Neuro: Normal speech, Sensation intact Psych/Mental Status: Mental status NL, Mood NL MUSCULOSKELETAL: Other (Upon inspection of right hip, there are no skin lesions or ecchymosis. Mild tenderness to palpation over fracture. Attempted motion of the hip is painful. Right leg is shortened and externally rotated. Calf soft and NT with negative Rosie's. Good dorsiflexion and plantarflexion with no evidence of neurovascular injury. Light touch sensation and peripheral pulses intact. ) Vitals VITALS Vital Signs Date Time Temp Pulse Resp B/P (MAP) Pulse Ox O2 Delivery O2 Flow Rate FiO2 10/26/16 12:36 91 Room Air 10/26/16 11:00 97.9 66 18 124/60 (81) 97.9 Labs Labs Laboratory Tests Test 10/25/16 20:15 10/26/16 03:49 White Blood Count 11.2 x10^3/uL (4.0-11.0) 8.4 x10^3/uL (4.0-11.0) Red Blood Count 4.96 x10^6/uL (3.50-5.40) 4.32 x10^6/uL (3.50-5.40) Hemoglobin 13.1 g/dL (12.0-15.5) 11.5 g/dL (12.0-15.5) Hematocrit 40.5 % (36.0-47.0) 34.4 % (36.0-47.0) Mean Corpuscular Volume 82 fL (79-100) 80 fL (79-100) Mean Corpuscular Hemoglobin 26 pg (25-35) 27 pg (25-35) Mean Corpuscular Hemoglobin Concent 32 g/dL (31-37) 33 g/dL (31-37) Red Cell Distribution Width 13.8 % (11.5-14.5) 13.6 % (11.5-14.5) Platelet Count 156 x10^3/uL (140-400) 143 x10^3/uL (140-400) Neutrophils (%) (Auto) 79 % (31-73) 85 % (31-73) Lymphocytes (%) (Auto) 14 % (24-48) 9 % (24-48) Monocytes (%) (Auto) 5 % (0-9) 5 % (0-9) Eosinophils (%) (Auto) 1 % (0-3) 0 % (0-3) Basophils (%) (Auto) 1 % (0-3) 0 % (0-3) Neutrophils # (Auto) 8.8 x10^3uL (1.8-7.7) 7.1 x10^3uL (1.8-7.7) Lymphocytes # (Auto) 1.6 x10^3/uL (1.0-4.8) 0.8 x10^3/uL (1.0-4.8) Monocytes # (Auto) 0.6 x10^3/uL (0.0-1.1) 0.4 x10^3/uL (0.0-1.1) Eosinophils # (Auto) 0.1 x10^3/uL (0.0-0.7) 0.0 x10^3/uL (0.0-0.7) Basophils # (Auto) 0.1 x10^3/uL (0.0-0.2) 0.0 x10^3/uL (0.0-0.2) Prothrombin Time 12.3 SEC (11.7-14.0) Prothromb Time International Ratio 1.0 (0.8-1.1) Sodium Level 140 mmol/L (136-145) 140 mmol/L (136-145) Potassium Level 3.4 mmol/L (3.5-5.1) 3.5 mmol/L (3.5-5.1) Chloride Level 102 mmol/L (98-107) 102 mmol/L (98-107) Carbon Dioxide Level 27 mmol/L (21-32) 29 mmol/L (21-32) Anion Gap 11 (6-14) 9 (6-14) Blood Urea Nitrogen 34 mg/dL (7-20) 27 mg/dL (7-20) Creatinine 1.4 mg/dL (0.6-1.0) 1.3 mg/dL (0.6-1.0) Estimated GFR (Cockcroft-Gault) 35.9 39.1 Glucose Level 159 mg/dL (70-99) 146 mg/dL (70-99) Calcium Level 8.8 mg/dL (8.5-10.1) 8.2 mg/dL (8.5-10.1) Magnesium Level 1.4 mg/dL (1.8-2.4) Creatine Kinase 50 U/L (26-192) Creatine Kinase MB (Mass) < 0.5 ng/mL (0.0-3.6) Creatine Kinase MB Relative Index 1.0 % (0-4) Troponin I Quantitative < 0.017 ng/mL (0.000-0.055) Thyroid Stimulating Hormone (TSH) 6.780 uIU/mL (0.358-3.74) Segmented Neutrophils % 94 % (35-66) Band Neutrophils % 1 % (0-9) Lymphocytes % 4 % (24-48) Monocytes % 1 % (0-10) Platelet Estimate Adequate (ADEQUATE) Laboratory Tests Test 10/25/16 20:15 10/26/16 03:49 White Blood Count 11.2 x10^3/uL (4.0-11.0) 8.4 x10^3/uL (4.0-11.0) Red Blood Count 4.96 x10^6/uL (3.50-5.40) 4.32 x10^6/uL (3.50-5.40) Hemoglobin 13.1 g/dL (12.0-15.5) 11.5 g/dL (12.0-15.5) Hematocrit 40.5 % (36.0-47.0) 34.4 % (36.0-47.0) Mean Corpuscular Volume 82 fL (79-100) 80 fL (79-100) Mean Corpuscular Hemoglobin 26 pg (25-35) 27 pg (25-35) Mean Corpuscular Hemoglobin Concent 32 g/dL (31-37) 33 g/dL (31-37) Red Cell Distribution Width 13.8 % (11.5-14.5) 13.6 % (11.5-14.5) Platelet Count 156 x10^3/uL (140-400) 143 x10^3/uL (140-400) Neutrophils (%) (Auto) 79 % (31-73) 85 % (31-73) Lymphocytes (%) (Auto) 14 % (24-48) 9 % (24-48) Monocytes (%) (Auto) 5 % (0-9) 5 % (0-9) Eosinophils (%) (Auto) 1 % (0-3) 0 % (0-3) Basophils (%) (Auto) 1 % (0-3) 0 % (0-3) Neutrophils # (Auto) 8.8 x10^3uL (1.8-7.7) 7.1 x10^3uL (1.8-7.7) Lymphocytes # (Auto) 1.6 x10^3/uL (1.0-4.8) 0.8 x10^3/uL (1.0-4.8) Monocytes # (Auto) 0.6 x10^3/uL (0.0-1.1) 0.4 x10^3/uL (0.0-1.1) Eosinophils # (Auto) 0.1 x10^3/uL (0.0-0.7) 0.0 x10^3/uL (0.0-0.7) Basophils # (Auto) 0.1 x10^3/uL (0.0-0.2) 0.0 x10^3/uL (0.0-0.2) Prothrombin Time 12.3 SEC (11.7-14.0) Prothromb Time International Ratio 1.0 (0.8-1.1) Sodium Level 140 mmol/L (136-145) 140 mmol/L (136-145) Potassium Level 3.4 mmol/L (3.5-5.1) 3.5 mmol/L (3.5-5.1) Chloride Level 102 mmol/L (98-107) 102 mmol/L (98-107) Carbon Dioxide Level 27 mmol/L (21-32) 29 mmol/L (21-32) Anion Gap 11 (6-14) 9 (6-14) Blood Urea Nitrogen 34 mg/dL (7-20) 27 mg/dL (7-20) Creatinine 1.4 mg/dL (0.6-1.0) 1.3 mg/dL (0.6-1.0) Estimated GFR (Cockcroft-Gault) 35.9 39.1 Glucose Level 159 mg/dL (70-99) 146 mg/dL (70-99) Calcium Level 8.8 mg/dL (8.5-10.1) 8.2 mg/dL (8.5-10.1) Magnesium Level 1.4 mg/dL (1.8-2.4) Creatine Kinase 50 U/L (26-192) Creatine Kinase MB (Mass) < 0.5 ng/mL (0.0-3.6) Creatine Kinase MB Relative Index 1.0 % (0-4) Troponin I Quantitative < 0.017 ng/mL (0.000-0.055) Thyroid Stimulating Hormone (TSH) 6.780 uIU/mL (0.358-3.74) Segmented Neutrophils % 94 % (35-66) Band Neutrophils % 1 % (0-9) Lymphocytes % 4 % (24-48) Monocytes % 1 % (0-10) Platelet Estimate Adequate (ADEQUATE) Images Images AP pelvis and right hip x-rays were reviewed. There is a mildly displaced intertrochanteric fracture of the right hip seen. Assessment/Plan Assessment/Plan Right hip intertrochanteric fracture. Findings were reviewed with the patient and her daughter. We discussed nonoperative treatment versus operative treatment. Nonoperative treatment would include bed rest, which is no recommended due to the risks of developing bed sores, pneumonia, etc. I recommended a long hip gamma nail and the surgical procedure was explained. We discussed risks of surgery, including infection, blood clots, bleeding, neurovascular injury, hardware failure, or any other potential surgical or anesthetic complications. All of her questions were answered and she desires to proceed with surgery. She is scheduled for 6:30pm [facility]. ANGLE CHAPMAN Oct 26, 2016 14:21
[2016-10-26] MEDS: oxyCODONE IR 5 MG TABLET PO PRN (14:48)
[2016-10-26 15:00] VITALS: BP 141/66
[2016-10-26] MEDS ORDERED: [UNRECOGNIZED DRUG - REMARK] INT ART ONE ×4 (18:45)
[2016-10-26] MEDS ORDERED: LIDOCAINE 2% PF Vial for OR 5 ML VIAL. ONE (20:23)
[2016-10-26] MEDS ORDERED: PROPOFOL 20 ML IV ONE (20:23)
[2016-10-26] MEDS ORDERED: ONDANSETRON PF 4 MG/2 ML VIAL. ONE (20:23)
[2016-10-26] MEDS ORDERED: DEXAMETHASONE SOD PHOS 20 MG/5 ML VIAL. ONE (20:23)
[2016-10-26] MEDS ORDERED: fentaNYL PF VIAL 100 MCG/2 ML VIAL ONE ×3 (20:23→23:54)
[2016-10-26] MEDS ORDERED: KETOROLAC 60 MG/2 ML INJ FOR OR. ONE (20:38)
[2016-10-26] MEDS: diphenhydrAMINE HCL 25 MG CAPSULE PO SCH (21:00)
[2016-10-26] MEDS ORDERED: ceFAZolin 1GM IVPB FOR OMNI 100 ML IV ONE (21:36)
[2016-10-26] MEDS ORDERED: PHENYLEPHRINE in 0.9% NACL PF 1 MG/10 ML DISP.SYRIN. IV ONE (22:03)
[2016-10-26] MEDS ORDERED: POLYETHYLENE GLYCOL 3350 17 GM PACKET. PO PRN (23:30)
[2016-10-26] MEDS ORDERED: MORPHINE SULFATE 4 MG/ML DISP.SYRIN. IV PRN ×2 (23:30)
[2016-10-26] MEDS ORDERED: DEXTROSE 50% 25 GM / 50ML DISP.SYRIN. IV PRN (23:30)
[2016-10-26] MEDS ORDERED: HYDROcodone/APAP 7.5/325MG 1 TAB TABLET PO PRN (23:30)
[2016-10-26] MEDS ORDERED: oxyCODONE IR 5 MG TABLET PO PRN (23:30)
[2016-10-26] MEDS ORDERED: PROCHLORPERAZINE 10 MG/2 ML VIAL. ONE (23:32)
--- NOTE | 2016-10-26 23:32 | PDOC4 ---
Operative Note Operative Note Date of Procedure: October 26, 2016 Pre-Op Diagnosis: right closed intertrochanteric/subtrochanteric hip fracture Post-Op Diagnosis: right closed intertrochanteric/subtrochanteric hip fracture Procedure/Anesthesia: right long intramedullary nail Surgeon: Nelly Birmingham MD Clinical Nurse Manager: Santa Lopez PA-C, Pedrito Keller PA-C Anesthesia Type: General EBL: 300 mL Specimens Obtained: none Complications: None Implant Company: [employer] INDICATION FOR PROCEDURE: The patient is a 81 year-old, who fell, sustaining a hip fracture. X-rays show an unstable intertrochanteric hip fracture. The patient and I, and the patient's family discussed the risks, benefits and alternatives of treatment. The alternative for treatment is bedrest, which I generally do not recommend. I recommended intramedullary nailing, and I talked to them about the potential risks of this, including bleeding, infection, blood clots, malunion, nonunion or other potential surgical or anesthetic complications. All of their questions were answered about surgery and they desired to proceed. A written consent was obtained. PROCEDURE IN DETAIL: The patient was identified in the preoperative holding area. The correct right hip was marked by me. The patient was taken to the operating room, where general anesthetic was used. Preoperative antibiotics were given intravenously. The HANA table was used and the well leg was placed in a padded lithotomy leg yates while the foot of the right leg was placed in a traction foot boot. A time-out procedure was performed. The image intensifier was used, and a preliminary reduction performed. The hip area was prepped sterilely with ChloraPrep solution and a sterile barrier Ioban hip drape was used. An incision was made over the superior aspect of the greater trochanter. A guide pin was placed through the cannulated awl at the tip of the greater trochanter, and an entry reamer was used. A long guide pin was placed down the intramedullary canal and the length was measured. The canal was sequentially reamed for a long nail until intramedullary chatter occurred. The nail was placed down the canal, and the guide wire was removed. A second incision was now used over the lower part of the greater trochanter, to place a guide pin through the guide, in the center-center position of the femoral head, and measured. The tunnel for the lag screw was reamed. The lag screw was placed through the nail using the guide. A proximal locking screw was now placed to lock the lag screw. Finally, a cross lock screw was placed distally using a freehand technique and the image intensifier. Satisfactory reduction and fixation was obtained using image intensifier views in multiple planes. Copious irrigation was used and the fascia was closed with #2 Vicryl. My early childhood teacher assistant completed the closure with 2-0 Vicryl and shivani. She injected ropivacaine epinephrine and morphine for pain relief. A bulky sterile dressing was applied. The patient was gently transferred from the fracture table back to a hospital bed. There were no apparent complications. NELLY BIRMINGHAM MD Oct 26, 2016 23:32
[2016-10-27] VITALS (13 sets, daily range): BP systolic 124–152; BP diastolic 57–86
[2016-10-27] MEDS: fentaNYL PF VIAL 100 MCG/2 ML VIAL IV PRN (00:09)
[2016-10-27] MEDS: ONDANSETRON PF 4 MG/2 ML VIAL. IV PRN (00:27)
[2016-10-27] MEDS: MORPHINE SULFATE 2 MG/ML DISP.SYRIN. IV PRN (00:27)
[2016-10-27] MEDS: POTASSIUM CL 20MEQ D5-0.45NACL 1,000 ML IV SCH ×3 (00:28→17:30)
[2016-10-27 04:33] LABS: HEMATOCRIT 34.6 % (36.0-47.0); HEMOGLOBIN 11.5 g/dL (12.0-15.5)
[2016-10-27] MEDS ORDERED: MAGNESIUM HYDROXIDE 2,400 MG/30 ML ORAL.SUSP. PO PRN (06:00)
[2016-10-27] MEDS ORDERED: CHOLECALCIFEROL (VITAMIN D3) 1,000 UNIT TABLET PO SCH (09:00)
[2016-10-27] MEDS: ACETAMINOPHEN 325 MG TABLET. PO SCH (10:10)
[2016-10-27] MEDS: PANTOPRAZOLE 40 MG TABLET.DR. PO SCH (10:10)
[2016-10-27] MEDS: ASPIRIN 325 MG TABLET PO SCH ×2 (10:10→21:02)
[2016-10-27] MEDS: LISINOPRIL 40 MG TABLET. PO SCH (10:11)
[2016-10-27] MEDS: SENNOSIDES/DOCUSATE 8.6/50MG TABLET. PO SCH (10:11)
[2016-10-27] MEDS: METOPROLOL TART IMMED RELEASE 50 MG TABLET. PO SCH ×2 (10:12→21:03)
[2016-10-27] MEDS: CHOLECALCIFEROL (VITAMIN D3) 1,000 UNIT TABLET PO SCH (10:12)
[2016-10-27] MEDS: oxyCODONE ER 10 MG TAB.ER.12H PO SCH ×2 (10:13→21:01)
--- NOTE | 2016-10-27 11:41 | PDOC ---
PROGRESS NOTES Chief Complaint Chief Complaint 1. RT intertrochanteric fx after mechanical fall, traumatic, closed 2. Chronic diastolic heart failure 3,. Geriatric fall risk, weakness, acquired 4. HTN, dyslipidemia - chronic stable 5. Hx elevated BS in past admits, 6. HX sigmoid abscess with sigmoidectomy 2015 7. constipation History of Present Illness History of Present Illness s/p surg last night, went well, nail placed into hip PT and OT today pain OK no stool, milk of mag given, miralax, senna will need SNU Vitals Vitals Vital Signs Date Time Temp Pulse Resp B/P (MAP) Pulse Ox O2 Delivery O2 Flow Rate FiO2 10/27/16 10:13 94 Room Air 2.0 10/27/16 10:12 76 144/66 10/27/16 07:00 97.8 20 97.8 Physical Exam General: Alert, Oriented X3, Cooperative, No acute distress Heart: Regular rate Lungs: Clear Abdomen: Soft Extremities: No clubbing, No cyanosis, Normal pulses Skin: No rashes, No breakdown, No significant lesion Labs LABS Laboratory Tests Test 10/27/16 03:20 Hemoglobin 11.5 g/dL (12.0-15.5) Hematocrit 34.6 % (36.0-47.0) Mean Corpuscular Hemoglobin Concent 33 g/dL (31-37) Review of Systems Review of Systems hip pain no stool no n.v Assessment and Plan Assessmemt and Plan Problems Medical Problems: (1) Hip fracture Status: Acute Problems: Comment Review of Relevant I have reviewed the following items jimy (where applicable) has been applied. Labs Laboratory Tests Test 10/25/16 20:10 10/25/16 20:15 10/26/16 03:49 10/26/16 09:50 25-Hydroxy Vitamin D Total 6.4 ng/mL (30.0-100.0) White Blood Count 11.2 x10^3/uL (4.0-11.0) 8.4 x10^3/uL (4.0-11.0) Red Blood Count 4.96 x10^6/uL (3.50-5.40) 4.32 x10^6/uL (3.50-5.40) Hemoglobin 13.1 g/dL (12.0-15.5) 11.5 g/dL (12.0-15.5) Hematocrit 40.5 % (36.0-47.0) 34.4 % (36.0-47.0) Mean Corpuscular Volume 82 fL (79-100) 80 fL (79-100) Mean Corpuscular Hemoglobin 26 pg (25-35) 27 pg (25-35) Mean Corpuscular Hemoglobin Concent 32 g/dL (31-37) 33 g/dL (31-37) Red Cell Distribution Width 13.8 % (11.5-14.5) 13.6 % (11.5-14.5) Platelet Count 156 x10^3/uL (140-400) 143 x10^3/uL (140-400) Neutrophils (%) (Auto) 79 % (31-73) 85 % (31-73) Lymphocytes (%) (Auto) 14 % (24-48) 9 % (24-48) Monocytes (%) (Auto) 5 % (0-9) 5 % (0-9) Eosinophils (%) (Auto) 1 % (0-3) 0 % (0-3) Basophils (%) (Auto) 1 % (0-3) 0 % (0-3) Neutrophils # (Auto) 8.8 x10^3uL (1.8-7.7) 7.1 x10^3uL (1.8-7.7) Lymphocytes # (Auto) 1.6 x10^3/uL (1.0-4.8) 0.8 x10^3/uL (1.0-4.8) Monocytes # (Auto) 0.6 x10^3/uL (0.0-1.1) 0.4 x10^3/uL (0.0-1.1) Eosinophils # (Auto) 0.1 x10^3/uL (0.0-0.7) 0.0 x10^3/uL (0.0-0.7) Basophils # (Auto) 0.1 x10^3/uL (0.0-0.2) 0.0 x10^3/uL (0.0-0.2) Prothrombin Time 12.3 SEC (11.7-14.0) Prothromb Time International Ratio 1.0 (0.8-1.1) Sodium Level 140 mmol/L (136-145) 140 mmol/L (136-145) Potassium Level 3.4 mmol/L (3.5-5.1) 3.5 mmol/L (3.5-5.1) Chloride Level 102 mmol/L (98-107) 102 mmol/L (98-107) Carbon Dioxide Level 27 mmol/L (21-32) 29 mmol/L (21-32) Anion Gap 11 (6-14) 9 (6-14) Blood Urea Nitrogen 34 mg/dL (7-20) 27 mg/dL (7-20) Creatinine 1.4 mg/dL (0.6-1.0) 1.3 mg/dL (0.6-1.0) Estimated GFR (Cockcroft-Gault) 35.9 39.1 Glucose Level 159 mg/dL (70-99) 146 mg/dL (70-99) Calcium Level 8.8 mg/dL (8.5-10.1) 8.2 mg/dL (8.5-10.1) Magnesium Level 1.4 mg/dL (1.8-2.4) Creatine Kinase 50 U/L (26-192) Creatine Kinase MB (Mass) < 0.5 ng/mL (0.0-3.6) Creatine Kinase MB Relative Index 1.0 % (0-4) Troponin I Quantitative < 0.017 ng/mL (0.000-0.055) Thyroid Stimulating Hormone (TSH) 6.780 uIU/mL (0.358-3.74) Segmented Neutrophils % 94 % (35-66) Band Neutrophils % 1 % (0-9) Lymphocytes % 4 % (24-48) Monocytes % 1 % (0-10) Platelet Estimate Adequate (ADEQUATE) Nasal Screen MRSA (PCR) Negative (Negative) Test 10/27/16 03:20 Hemoglobin 11.5 g/dL (12.0-15.5) Hematocrit 34.6 % (36.0-47.0) Mean Corpuscular Hemoglobin Concent 33 g/dL (31-37) Laboratory Tests Test 10/27/16 03:20 Hemoglobin 11.5 g/dL (12.0-15.5) Hematocrit 34.6 % (36.0-47.0) Mean Corpuscular Hemoglobin Concent 33 g/dL (31-37) Medications Current Medications Fentanyl Citrate (Fentanyl 2ml Vial) 25 mcg PRN Q15MIN PRN IV PAIN GREATER THAN 3/10 Last administered on 10/25/16 20:18; Start 10/25/16 at 20:15; Stop at 20:45; Status DC Ondansetron HCl (Zofran) 4 mg PRN Q6HRS PRN IV NAUSEA/VOMITING Last administered on 10/27/16 00:27; Start 10/25/16 at 20:15 Fentanyl Citrate (Fentanyl 2ml Vial) 50 mcg PRN Q2HR PRN IV pain Last administered on 10/26/16 03:01; Start 10/25/16 at 20:15 Morphine Sulfate 2 mg PRN Q2HR PRN IV pain Last administered on 10/27/16 00:27 ; Start 10/25/16 at 20:15 Labetalol HCl (Normodyne) 10 mg PRN Q2HR PRN IVP 160/100; Start 10/25/16 at 20: 15; Stop 10/26/16 at 10:28; Status DC Acetaminophen (Tylenol) 650 mg DAILY PO Last administered on 10/27/16 10:10; Start 10/26/16 at 09:00 Diphenhydramine HCl (Benadryl) 25 mg HS PO Last administered on 10/25/16 21:28 ; Start 10/25/16 at 21:00 Lisinopril (Prinivil) 40 mg DAILY08 PO Last administered on 10/27/16 10:11; Start 10/26/16 at 08:00 Oxycodone HCl (OxyCONTIN) 10 mg BID PO Last administered on 10/27/16 10:13; Start 10/25/16 at 21:00 Pantoprazole Sodium (Protonix) 40 mg DAILYAC PO ; Start 10/26/16 at 07:30; Stop 10/26/16 at 07:30; Status DC Metoprolol Tartrate (Lopressor) 50 mg BID PO ; Start 10/25/16 at 21:00; Stop at 21:00; Status DC Pantoprazole Sodium (Protonix) 40 mg DAILYAC PO Last administered on 10/27/16 10:10; Start 10/26/16 at 07:30 Non-Formulary Medication 1 tab BID PO ; Start 10/25/16 at 21:00; Stop 10/25/16 at 21:00; Status DC Metoprolol Tartrate (Lopressor) 100 mg BID PO Last administered on 10/27/16 10 :12; Start 10/25/16 at 21:00 Ondansetron HCl (Zofran) 4 mg PRN Q8HRS PRN IV NAUSEA/VOMITING; Start 10/25/16 at 20:45; Stop 10/25/16 at 20:45; Status DC Fentanyl Citrate (Fentanyl 2ml Vial) 25 mcg PRN Q2HR PRN IV PAIN; Start at 20:45; Stop 10/25/16 at 20:45; Status DC Sodium Chloride 1,000 ml @ 75 mls/hr [id number] IV Last administered on 21:30; Start 10/25/16 at 21:00; Stop 10/26/16 at 11:14; Status DC Oxycodone HCl (Roxicodone) 10 mg PRN Q6HRS PRN PO PAIN Last administered on 14:48; Start 10/25/16 at 23:30 Oxycodone HCl (Roxicodone) 20 mg PRN Q6HRS PRN PO PAIN Last administered on 03:02; Start 10/25/16 at 23:30 Ondansetron HCl (Zofran) 4 mg PRN Q6HRS PRN IV NAUSEA/VOMITING; Start 10/26/16 at 07:30; Stop 10/27/16 at 07:40; Status DC Fentanyl Citrate (Fentanyl 2ml Vial) 25 mcg PRN Q5MIN PRN IV MILD PAIN; Start 10/26/16 at 07:30; Stop 10/27/16 at 07:40; Status DC Fentanyl Citrate (Fentanyl 2ml Vial) 50 mcg PRN Q5MIN PRN IV MODERATE PAIN Last administered on 10/26/16 23:45; Start 10/26/16 at 07:30; Stop 10/27/16 at 07:40; Status DC Morphine Sulfate 1 mg PRN Q10MIN PRN IV SEVERE PAIN; Start 10/26/16 at 07:30; Stop 10/27/16 at 07:40; Status DC Ringer's Solution 1,000 ml @ 30 mls/hr Q24H IV Last administered on 10/26/16 07:16; Start 10/26/16 at 07:16; Stop 10/26/16 at 19:15; Status DC Lidocaine HCl 2 ml PRN 1X PRN ID PRIOR TO IV START; Start 10/26/16 at 07:30; Stop 10/27/16 at 07:40; Status DC Hydromorphone HCl (Dilaudid) 0.5 mg PRN Q10MIN PRN IV SEV PAIN, Second choice; Start 10/26/16 at 07:30; Stop 10/27/16 at 07:40; Status DC Prochlorperazine Edisylate (Compazine) 5 mg PACU PRN PRN IV NAUSEA, MRX1 Last administered on 10/26/16 23:36; Start 10/26/16 at 07:30; Stop 10/27/16 at 07:40 ; Status DC Labetalol HCl (Normodyne) 20 mg PRN Q2HR PRN IVP 160/100 Last administered on 23:51; Start 10/26/16 at 10:30 Hydralazine HCl (Apresoline) 10 mg PRN Q4HRS PRN IVP ELEVATED BP, SEE COMMENTS ; Start 10/26/16 at 10:30 Potassium Chloride/Dextrose/ Sod Cl 1,000 ml @ 100 mls/hr Q10H IV Last administered on 10/27/16 07:30; Start 10/26/16 at 11:30 Ropivacaine 53.3 ml/Epinephrine HCl 0.6 mg/ Morphine Sulfate 5 mg/Sodium Chloride 100 ml @ 100 mls/hr 1X PERIOP ONCE INT ART Last administered on 10/26 22:13; Start 10/26/16 at 18:45; Stop 10/26/16 at 19:44; Status DC Dexamethasone Sodium Phosphate (Decadron) 20 mg STK-MED ONCE .ROUTE ; Start at 20:23; Stop 10/26/16 at 20:24; Status DC Ondansetron HCl (Zofran) 4 mg STK-MED ONCE .ROUTE ; Start 10/26/16 at 20:23; Stop 10/26/16 at 20:24; Status DC Propofol 20 ml @ As Directed STK-MED ONCE IV ; Start 10/26/16 at 20:23; Stop at 20:24; Status DC Lidocaine HCl (Lidocaine Pf 2% Vial) 5 ml STK-MED ONCE .ROUTE ; Start 10/26/16 at 20:23; Stop 10/26/16 at 20:24; Status DC Fentanyl Citrate (Fentanyl 2ml Vial) 100 mcg STK-MED ONCE .ROUTE ; Start at 20:23; Stop 10/26/16 at 20:24; Status DC Ketorolac Tromethamine (Toradol For Or Only) 60 mg STK-MED ONCE .ROUTE ; Start 10/26/16 at 20:38; Stop 10/26/16 at 20:39; Status DC Ephedrine Sulfate (Akovaz) 50 mg STK-MED ONCE .ROUTE ; Start 10/26/16 at 20:44; Stop 10/26/16 at 20:45; Status DC Cefazolin Sodium 100 ml @ As Directed STK-MED ONCE IV ; Start 10/26/16 at 21:36 ; Stop 10/26/16 at 21:37; Status DC Phenylephrine HCl 1 mg STK-MED ONCE IV ; Start 10/26/16 at 22:03; Stop 10/26/16 at 22:04; Status DC Fentanyl Citrate (Fentanyl 2ml Vial) 100 mcg STK-MED ONCE .ROUTE ; Start at 22:35; Stop 10/26/16 at 22:36; Status DC Oxycodone HCl (Roxicodone) 5 mg PRN Q3HRS PRN PO PAIN; Start 10/26/16 at 23:30 Morphine Sulfate 2 mg PRN Q1HR PRN IV PAIN; Start 10/26/16 at 23:30 Fentanyl Citrate (Fentanyl 2ml Vial) 25 mcg PRN Q1HR PRN IV PAIN; Start at 23:30 Senna/Docusate Sodium (Senna Plus) 1 tab DAILY PO Last administered on t 10:11; Start 10/27/16 at 09:00 Polyethylene Glycol (miraLAX PACKET) 17 gm PRN DAILY PRN PO CONSTIPATION; Start 10/26/16 at 23:30 Vitamin D (Vitamin D3) 1,000 unit DAILY PO ; Start 10/27/16 at 09:00; Stop 10/27 at 09:00; Status DC Ondansetron HCl (Zofran) 4 mg PRN Q4HRS PRN IV NAUSEA/VOMITING; Start 10/26/16 at 23:30 Aspirin (Cherelle Aspirin) 325 mg BID PO Last administered on 10/27/16 10:10; Start 10/27/16 at 09:00 Magnesium Hydroxide (Milk Of Magnesia) 2,400 mg 1X PRN PRN PO CONSTIPATION Last administered on 10/27/16 10:10; Start 10/27/16 at 06:00; Stop 10/28/16 at 05:59 Bisacodyl (Dulcolax Supp) 10 mg 1X PRN PRN NM CONSTIPATION; Start 10/27/16 at 16:00; Stop 10/28/16 at 15:59 Acetaminophen/ Hydrocodone Bitart (Lortab 7.5/325) 1 tab PRN Q4HRS PRN PO PAIN ; Start 10/26/16 at 23:30 Morphine Sulfate 4 mg PRN Q2HR PRN IV PAIN; Start 10/26/16 at 23:30 Acetaminophen/ Hydrocodone Bitart (Lortab 7.5/325) 2 tab PRN Q4HRS PRN PO PAIN ; Start 10/26/16 at 23:30 Dextrose (Dextrose 50%-Water Syringe) 12.5 gm PRN Q15MIN PRN IV SEE COMMENTS; Start 10/26/16 at 23:30 Cefazolin Sodium 1 gm/Sodium Chloride 50 ml @ 100 mls/hr Q6H IV Last administered on 10/27/16 06:00; Start 10/27/16 at 00:00; Stop 10/27/16 at 12:29 Vitamin D (Vitamin D3) 5,000 unit DAILY PO Last administered on 10/27/16 10:12 ; Start 10/27/16 at 09:00 Ergocalciferol (Vitamin D2) 50,000 unit WEEKLY PO ; Start 11/02/16 at 09:00 Prochlorperazine Edisylate (Compazine) 10 mg STK-MED ONCE .ROUTE ; Start at 23:32; Stop 10/26/16 at 23:33; Status DC Fentanyl Citrate (Fentanyl 2ml Vial) 100 mcg STK-MED ONCE .ROUTE ; Start at 23:54; Stop 10/26/16 at 23:55; Status DC Active Scripts Active Reported Pantoprazole Sodium 40 Mg Tablet.dr 1 Tab PO DAILY08 Lisinopril 40 Mg Tablet 1 Tab PO DAILY08 Oxycodone Hcl 10 Mg Tablet 1-2 Tab PO PRN QID PRN Tylenol (Acetaminophen) 325 Mg Tablet 650 Mg PO DAILY Oxycontin (Oxycodone HCl) 10 Mg Tab.er.12h 1 Tab PO BID Omeprazole 20 Mg Tablet.dr 20 Mg PO DAILY Metoprolol Tartrate 100 Mg Tablet 100 Mg PO BID Diphenhydramine Hcl 25 Mg Capsule 25 Mg PO HS Vitals/I & O Vital Sign - Last 24 Hours 10/26/16 10/26/16 10/26/16 10/26/16 12:36 14:48 15:00 15:48 Temp 97.5 97.5 Pulse 65 Resp 18 B/P (MAP) 141/66 (91) Pulse Ox 91 91 93 93 O2 Delivery Room Air Room Air Room Air Room Air 10/26/16 10/26/16 10/26/16 10/26/16 19:20 20:00 23:27 23:42 Temp 98.8 99.7 98.8 99.7 Pulse 68 78 72 Resp 15 16 16 B/P (MAP) 140/66 189/90 220/121 Pulse Ox 98 94 92 O2 Delivery Nasal Cannula Room Air Simple Mask Nasal Cannula O2 Flow Rate 3 7 2 10/26/16 10/26/16 10/26/16 10/26/16 23:43 23:45 23:51 23:57 Temp 99.0 99.0 Pulse 72 73 Resp 16 16 B/P (MAP) 220/121 146/49 Pulse Ox 96 95 O2 Delivery Nasal Cannula Nasal Cannula Nasal Cannula O2 Flow Rate 2 2 10/27/16 10/27/16 10/27/16 10/27/16 00:15 00:27 00:30 00:39 Temp 97.9 97.9 Pulse 67 79 Resp 16 20 16 20 B/P (MAP) 131/67 (88) 144/82 (102) Pulse Ox 94 96 93 96 O2 Delivery Nasal Cannula Nasal Cannula Nasal Cannula Nasal Cannula O2 Flow Rate 2.0 2.0 2.0 2.0 10/27/16 10/27/16 10/27/16 10/27/16 00:45 00:57 01:00 01:30 Pulse 85 77 77 Resp 16 20 16 B/P (MAP) 152/86 (108) 137/63 (87) 131/59 (83) Pulse Ox 93 96 92 90 O2 Delivery Nasal Cannula Nasal Cannula Nasal Cannula Room Air O2 Flow Rate 2.0 2.0 2.0 10/27/16 10/27/16 10/27/16 10/27/16 02:00 03:00 04:00 07:00 Temp 97.8 97.8 Pulse 76 77 73 76 Resp 20 B/P (MAP) 124/57 (79) 131/64 (86) 143/63 (89) 144/66 (92) Pulse Ox 97 96 93 94 O2 Delivery Room Air Room Air Room Air Room Air 10/27/16 10/27/16 10/27/16 10:11 10:12 10:13 Pulse 76 76 B/P (MAP) 144/66 144/66 Pulse Ox 94 O2 Delivery Room Air O2 Flow Rate 2.0 MIGUELITO TELLO MD Oct 27, 2016 11:41
[2016-10-27] MEDS ORDERED: POLYETHYLENE GLYCOL 3350 17 GM PACKET. PO ONE (11:45)
[2016-10-27] MEDS ORDERED: POLYETHYLENE GLYCOL 3350 17 GM PACKET. PO PRN (11:45)
--- NOTE | 2016-10-27 14:48 | PDOC ---
PROGRESS NOTES Subjective Subjective Doing well. Sleeping in recliner but awakes easily. Pain controlled. Objective Vital Signs Vital Signs Date Time Temp Pulse Resp B/P (MAP) Pulse Ox O2 Delivery O2 Flow Rate FiO2 10/27/16 10:13 94 Room Air 2.0 10/27/16 10:12 76 144/66 10/27/16 07:00 97.8 20 97.8 Physical Exam Sitting up in recliner. Postop dressing dry and intact. Ice pack over right hip. Calf soft and nontender with negative Rosie's sign. Good dorsiflexion and plantarflexion with no evidence of neurovascular injury. Peripheral pulses and light touch sensation intact. Labs Laboratory Tests Test 10/25/16 20:10 10/25/16 20:15 10/26/16 03:49 10/26/16 09:50 25-Hydroxy Vitamin D Total 6.4 ng/mL (30.0-100.0) White Blood Count 11.2 x10^3/uL (4.0-11.0) 8.4 x10^3/uL (4.0-11.0) Red Blood Count 4.96 x10^6/uL (3.50-5.40) 4.32 x10^6/uL (3.50-5.40) Hemoglobin 13.1 g/dL (12.0-15.5) 11.5 g/dL (12.0-15.5) Hematocrit 40.5 % (36.0-47.0) 34.4 % (36.0-47.0) Mean Corpuscular Volume 82 fL (79-100) 80 fL (79-100) Mean Corpuscular Hemoglobin 26 pg (25-35) 27 pg (25-35) Mean Corpuscular Hemoglobin Concent 32 g/dL (31-37) 33 g/dL (31-37) Red Cell Distribution Width 13.8 % (11.5-14.5) 13.6 % (11.5-14.5) Platelet Count 156 x10^3/uL (140-400) 143 x10^3/uL (140-400) Neutrophils (%) (Auto) 79 % (31-73) 85 % (31-73) Lymphocytes (%) (Auto) 14 % (24-48) 9 % (24-48) Monocytes (%) (Auto) 5 % (0-9) 5 % (0-9) Eosinophils (%) (Auto) 1 % (0-3) 0 % (0-3) Basophils (%) (Auto) 1 % (0-3) 0 % (0-3) Neutrophils # (Auto) 8.8 x10^3uL (1.8-7.7) 7.1 x10^3uL (1.8-7.7) Lymphocytes # (Auto) 1.6 x10^3/uL (1.0-4.8) 0.8 x10^3/uL (1.0-4.8) Monocytes # (Auto) 0.6 x10^3/uL (0.0-1.1) 0.4 x10^3/uL (0.0-1.1) Eosinophils # (Auto) 0.1 x10^3/uL (0.0-0.7) 0.0 x10^3/uL (0.0-0.7) Basophils # (Auto) 0.1 x10^3/uL (0.0-0.2) 0.0 x10^3/uL (0.0-0.2) Prothrombin Time 12.3 SEC (11.7-14.0) Prothromb Time International Ratio 1.0 (0.8-1.1) Sodium Level 140 mmol/L (136-145) 140 mmol/L (136-145) Potassium Level 3.4 mmol/L (3.5-5.1) 3.5 mmol/L (3.5-5.1) Chloride Level 102 mmol/L (98-107) 102 mmol/L (98-107) Carbon Dioxide Level 27 mmol/L (21-32) 29 mmol/L (21-32) Anion Gap 11 (6-14) 9 (6-14) Blood Urea Nitrogen 34 mg/dL (7-20) 27 mg/dL (7-20) Creatinine 1.4 mg/dL (0.6-1.0) 1.3 mg/dL (0.6-1.0) Estimated GFR (Cockcroft-Gault) 35.9 39.1 Glucose Level 159 mg/dL (70-99) 146 mg/dL (70-99) Calcium Level 8.8 mg/dL (8.5-10.1) 8.2 mg/dL (8.5-10.1) Magnesium Level 1.4 mg/dL (1.8-2.4) Creatine Kinase 50 U/L (26-192) Creatine Kinase MB (Mass) < 0.5 ng/mL (0.0-3.6) Creatine Kinase MB Relative Index 1.0 % (0-4) Troponin I Quantitative < 0.017 ng/mL (0.000-0.055) Thyroid Stimulating Hormone (TSH) 6.780 uIU/mL (0.358-3.74) Segmented Neutrophils % 94 % (35-66) Band Neutrophils % 1 % (0-9) Lymphocytes % 4 % (24-48) Monocytes % 1 % (0-10) Platelet Estimate Adequate (ADEQUATE) Nasal Screen MRSA (PCR) Negative (Negative) Test 10/27/16 03:20 Hemoglobin 11.5 g/dL (12.0-15.5) Hematocrit 34.6 % (36.0-47.0) Mean Corpuscular Hemoglobin Concent 33 g/dL (31-37) Laboratory Tests Test 10/27/16 03:20 Hemoglobin 11.5 g/dL (12.0-15.5) Hematocrit 34.6 % (36.0-47.0) Mean Corpuscular Hemoglobin Concent 33 g/dL (31-37) Assessment Assessment POD #1 right hip IM nail Problems: Plan Plan of Care Continue POC including DVT ppx and therapy. WBAT with walker. Vitamin D 6.4 so supplementing with ergocalciferol 50,000 units weekly and cholecalciferol 5,000 units daily. States she is constipated - will try warm milk of magnesia with warm prune juice. ANGLE CHAPMAN Oct 27, 2016 14:48
[2016-10-27] MEDS: HYDROcodone/APAP 7.5/325MG 1 TAB TABLET PO PRN (15:25)
[2016-10-27] MEDS ORDERED: BISACODYL 10 MG SUPP.RECT. PR PRN (16:00)
[2016-10-27] MEDS: ENOXAPARIN 40 MG/0.4 ML SYRINGE. SQ SCH (18:00)
[2016-10-27] MEDS: oxyCODONE IR 5 MG TABLET PO PRN (21:02)
[2016-10-27] MEDS: diphenhydrAMINE HCL 25 MG CAPSULE PO SCH (21:03)
[2016-10-28] MEDS: POTASSIUM CL 20MEQ D5-0.45NACL 1,000 ML IV SCH (03:30)
[2016-10-28 03:50] VITALS: BP 161/61
[2016-10-28 05:16] LABS: BASO % 0 % (0-3); EOS % 0 % (0-3); HEMATOCRIT 27.3 % (36.0-47.0); HEMOGLOBIN 9.1 g/dL (12.0-15.5); LYMPH # 0.9 x10^3/uL (1.0-4.8); LYMPH % 12 % (24-48); MEAN CORPUSCULAR HEMOGLOBIN 27 pg (25-35); MEAN CORPUSCULAR HGB CONC 33 g/dL (31-37); MEAN CORPUSCULAR VOLUME 81 fL (79-100); MONO % 8 % (0-9); NEUT % 79 % (31-73); PLATELET COUNT 95 x10^3/uL (140-400); RED BLOOD COUNT 3.38 x10^6/uL (3.50-5.40); RED CELL DISTRIBUTION WIDTH 14.3 % (11.5-14.5)
[2016-10-28 05:38] LABS: ALBUMIN 2.7 g/dL (3.4-5.0); ALBUMIN/GLOBULIN RATIO 0.8 (1.0-1.7); CALCIUM 8.2 mg/dL (8.5-10.1); CREATININE 1.1 mg/dL (0.6-1.0); GFR 47.4; POTASSIUM 4.3 mmol/L (3.5-5.1); TOTAL BILIRUBIN 0.3 mg/dL (0.2-1.0); TOTAL PROTEIN 5.9 g/dL (6.4-8.2)
[2016-10-28 07:55] VITALS: BP 156/61
[2016-10-28] MEDS: LISINOPRIL 40 MG TABLET. PO SCH (09:01)
[2016-10-28] MEDS: ASPIRIN 325 MG TABLET PO SCH ×2 (09:01→20:34)
[2016-10-28] MEDS: METOPROLOL TART IMMED RELEASE 50 MG TABLET. PO SCH ×2 (09:02→20:35)
[2016-10-28] MEDS: SENNOSIDES/DOCUSATE 8.6/50MG TABLET. PO SCH (09:03)
[2016-10-28] MEDS: oxyCODONE ER 10 MG TAB.ER.12H PO SCH ×2 (09:03→20:34)
[2016-10-28] MEDS: CHOLECALCIFEROL (VITAMIN D3) 1,000 UNIT TABLET PO SCH (09:03)
[2016-10-28] MEDS: PANTOPRAZOLE 40 MG TABLET.DR. PO SCH (09:03)
[2016-10-28] MEDS: ACETAMINOPHEN 325 MG TABLET. PO SCH (09:03)
--- NOTE | 2016-10-28 10:17 | PDOC ---
PROGRESS NOTES Subjective Subjective Comfortable lying in bed. States she has no hip pain Objective Vital Signs Vital Signs Date Time Temp Pulse Resp B/P (MAP) Pulse Ox O2 Delivery O2 Flow Rate FiO2 10/28/16 09:03 Room Air 10/28/16 09:02 65 161/61 10/28/16 07:55 96.5 20 90 96.5 10/28/16 01:22 2.0 Physical Exam Lying in bed. Right hip dressing dry and intact. Gentle circumduction of hip is not painful. Calf soft and nontender with negative Rosie's sign. Good dorsiflexion and plantarflexion at foot. Peripheral pulses intact. Light touch sensation intact, but states she has mild numbness in toes. Labs Laboratory Tests Test 10/27/16 03:20 10/28/16 04:55 Hemoglobin 11.5 g/dL (12.0-15.5) 9.1 g/dL (12.0-15.5) Hematocrit 34.6 % (36.0-47.0) 27.3 % (36.0-47.0) Mean Corpuscular Hemoglobin Concent 33 g/dL (31-37) 33 g/dL (31-37) White Blood Count 8.0 x10^3/uL (4.0-11.0) Red Blood Count 3.38 x10^6/uL (3.50-5.40) Mean Corpuscular Volume 81 fL (79-100) Mean Corpuscular Hemoglobin 27 pg (25-35) Red Cell Distribution Width 14.3 % (11.5-14.5) Platelet Count 95 x10^3/uL (140-400) Neutrophils (%) (Auto) 79 % (31-73) Lymphocytes (%) (Auto) 12 % (24-48) Monocytes (%) (Auto) 8 % (0-9) Eosinophils (%) (Auto) 0 % (0-3) Basophils (%) (Auto) 0 % (0-3) Neutrophils # (Auto) 6.4 x10^3uL (1.8-7.7) Lymphocytes # (Auto) 0.9 x10^3/uL (1.0-4.8) Monocytes # (Auto) 0.7 x10^3/uL (0.0-1.1) Eosinophils # (Auto) 0.0 x10^3/uL (0.0-0.7) Basophils # (Auto) 0.0 x10^3/uL (0.0-0.2) Sodium Level 144 mmol/L (136-145) Potassium Level 4.3 mmol/L (3.5-5.1) Chloride Level 108 mmol/L (98-107) Carbon Dioxide Level 31 mmol/L (21-32) Anion Gap 5 (6-14) Blood Urea Nitrogen 17 mg/dL (7-20) Creatinine 1.1 mg/dL (0.6-1.0) Estimated GFR (Cockcroft-Gault) 47.4 BUN/Creatinine Ratio 15 (6-20) Glucose Level 120 mg/dL (70-99) Calcium Level 8.2 mg/dL (8.5-10.1) Total Bilirubin 0.3 mg/dL (0.2-1.0) Aspartate Amino Transf (AST/SGOT) 15 U/L (15-37) Alanine Aminotransferase (ALT/SGPT) 12 U/L (14-59) Alkaline Phosphatase 55 U/L (46-116) Total Protein 5.9 g/dL (6.4-8.2) Albumin 2.7 g/dL (3.4-5.0) Albumin/Globulin Ratio 0.8 (1.0-1.7) Laboratory Tests Test 10/28/16 04:55 White Blood Count 8.0 x10^3/uL (4.0-11.0) Red Blood Count 3.38 x10^6/uL (3.50-5.40) Hemoglobin 9.1 g/dL (12.0-15.5) Hematocrit 27.3 % (36.0-47.0) Mean Corpuscular Volume 81 fL (79-100) Mean Corpuscular Hemoglobin 27 pg (25-35) Mean Corpuscular Hemoglobin Concent 33 g/dL (31-37) Red Cell Distribution Width 14.3 % (11.5-14.5) Platelet Count 95 x10^3/uL (140-400) Neutrophils (%) (Auto) 79 % (31-73) Lymphocytes (%) (Auto) 12 % (24-48) Monocytes (%) (Auto) 8 % (0-9) Eosinophils (%) (Auto) 0 % (0-3) Basophils (%) (Auto) 0 % (0-3) Neutrophils # (Auto) 6.4 x10^3uL (1.8-7.7) Lymphocytes # (Auto) 0.9 x10^3/uL (1.0-4.8) Monocytes # (Auto) 0.7 x10^3/uL (0.0-1.1) Eosinophils # (Auto) 0.0 x10^3/uL (0.0-0.7) Basophils # (Auto) 0.0 x10^3/uL (0.0-0.2) Sodium Level 144 mmol/L (136-145) Potassium Level 4.3 mmol/L (3.5-5.1) Chloride Level 108 mmol/L (98-107) Carbon Dioxide Level 31 mmol/L (21-32) Anion Gap 5 (6-14) Blood Urea Nitrogen 17 mg/dL (7-20) Creatinine 1.1 mg/dL (0.6-1.0) Estimated GFR (Cockcroft-Gault) 47.4 BUN/Creatinine Ratio 15 (6-20) Glucose Level 120 mg/dL (70-99) Calcium Level 8.2 mg/dL (8.5-10.1) Total Bilirubin 0.3 mg/dL (0.2-1.0) Aspartate Amino Transf (AST/SGOT) 15 U/L (15-37) Alanine Aminotransferase (ALT/SGPT) 12 U/L (14-59) Alkaline Phosphatase 55 U/L (46-116) Total Protein 5.9 g/dL (6.4-8.2) Albumin 2.7 g/dL (3.4-5.0) Albumin/Globulin Ratio 0.8 (1.0-1.7) Assessment Assessment POD #2 right hip fracture Problems: Plan Plan of Care Continue POC care with DVT ppx and therapy. Hopefully she will be able to get up and walk with therapy today. Pain is controlled. Patient's daughter would like for her to be discharged to home, rather than [facility], if possible. ANGLE CHAPMAN Oct 28, 2016 10:17
[2016-10-28 10:59] VITALS: BP 115/54
[2016-10-28 14:55] VITALS: BP 117/38
--- NOTE | 2016-10-28 15:25 | PDOC ---
PROGRESS NOTES Chief Complaint Chief Complaint 1. RT intertrochanteric fx after mechanical fall, traumatic, closed 2. Chronic diastolic heart failure 3,. Geriatric fall risk, weakness, acquired 4. HTN, dyslipidemia - chronic stable 5. Hx elevated BS in past admits, 6. HX sigmoid abscess with sigmoidectomy 2015 7. constipation History of Present Illness History of Present Illness s/p surg l getting ebtter, still some pain, contralateral prior pain and weakness plan SNU, still weakness, discussed with daughter, to [facility] place 10/29 PT and OT pain OK no stool, milk of mag given, miralax, senna will need SNU Vitals Vitals Vital Signs Date Time Temp Pulse Resp B/P (MAP) Pulse Ox O2 Delivery O2 Flow Rate FiO2 10/28/16 14:55 97.3 70 18 117/38 (64) 95 Room Air 97.3 10/28/16 08:10 2.0 Physical Exam General: Alert, Oriented X3, Cooperative, No acute distress Heart: Regular rate Lungs: Clear Abdomen: Soft Extremities: No clubbing, No cyanosis, Normal pulses Skin: No rashes, No breakdown, No significant lesion Labs LABS Laboratory Tests Test 10/28/16 04:55 White Blood Count 8.0 x10^3/uL (4.0-11.0) Red Blood Count 3.38 x10^6/uL (3.50-5.40) Hemoglobin 9.1 g/dL (12.0-15.5) Hematocrit 27.3 % (36.0-47.0) Mean Corpuscular Volume 81 fL (79-100) Mean Corpuscular Hemoglobin 27 pg (25-35) Mean Corpuscular Hemoglobin Concent 33 g/dL (31-37) Red Cell Distribution Width 14.3 % (11.5-14.5) Platelet Count 95 x10^3/uL (140-400) Neutrophils (%) (Auto) 79 % (31-73) Lymphocytes (%) (Auto) 12 % (24-48) Monocytes (%) (Auto) 8 % (0-9) Eosinophils (%) (Auto) 0 % (0-3) Basophils (%) (Auto) 0 % (0-3) Neutrophils # (Auto) 6.4 x10^3uL (1.8-7.7) Lymphocytes # (Auto) 0.9 x10^3/uL (1.0-4.8) Monocytes # (Auto) 0.7 x10^3/uL (0.0-1.1) Eosinophils # (Auto) 0.0 x10^3/uL (0.0-0.7) Basophils # (Auto) 0.0 x10^3/uL (0.0-0.2) Sodium Level 144 mmol/L (136-145) Potassium Level 4.3 mmol/L (3.5-5.1) Chloride Level 108 mmol/L (98-107) Carbon Dioxide Level 31 mmol/L (21-32) Anion Gap 5 (6-14) Blood Urea Nitrogen 17 mg/dL (7-20) Creatinine 1.1 mg/dL (0.6-1.0) Estimated GFR (Cockcroft-Gault) 47.4 BUN/Creatinine Ratio 15 (6-20) Glucose Level 120 mg/dL (70-99) Calcium Level 8.2 mg/dL (8.5-10.1) Total Bilirubin 0.3 mg/dL (0.2-1.0) Aspartate Amino Transf (AST/SGOT) 15 U/L (15-37) Alanine Aminotransferase (ALT/SGPT) 12 U/L (14-59) Alkaline Phosphatase 55 U/L (46-116) Total Protein 5.9 g/dL (6.4-8.2) Albumin 2.7 g/dL (3.4-5.0) Albumin/Globulin Ratio 0.8 (1.0-1.7) Assessment and Plan Assessmemt and Plan Problems Medical Problems: (1) Hip fracture Status: Acute Problems: Comment Review of Relevant I have reviewed the following items jimy (where applicable) has been applied. Labs Laboratory Tests Test 10/27/16 03:20 10/28/16 04:55 Hemoglobin 11.5 g/dL (12.0-15.5) 9.1 g/dL (12.0-15.5) Hematocrit 34.6 % (36.0-47.0) 27.3 % (36.0-47.0) Mean Corpuscular Hemoglobin Concent 33 g/dL (31-37) 33 g/dL (31-37) White Blood Count 8.0 x10^3/uL (4.0-11.0) Red Blood Count 3.38 x10^6/uL (3.50-5.40) Mean Corpuscular Volume 81 fL (79-100) Mean Corpuscular Hemoglobin 27 pg (25-35) Red Cell Distribution Width 14.3 % (11.5-14.5) Platelet Count 95 x10^3/uL (140-400) Neutrophils (%) (Auto) 79 % (31-73) Lymphocytes (%) (Auto) 12 % (24-48) Monocytes (%) (Auto) 8 % (0-9) Eosinophils (%) (Auto) 0 % (0-3) Basophils (%) (Auto) 0 % (0-3) Neutrophils # (Auto) 6.4 x10^3uL (1.8-7.7) Lymphocytes # (Auto) 0.9 x10^3/uL (1.0-4.8) Monocytes # (Auto) 0.7 x10^3/uL (0.0-1.1) Eosinophils # (Auto) 0.0 x10^3/uL (0.0-0.7) Basophils # (Auto) 0.0 x10^3/uL (0.0-0.2) Sodium Level 144 mmol/L (136-145) Potassium Level 4.3 mmol/L (3.5-5.1) Chloride Level 108 mmol/L (98-107) Carbon Dioxide Level 31 mmol/L (21-32) Anion Gap 5 (6-14) Blood Urea Nitrogen 17 mg/dL (7-20) Creatinine 1.1 mg/dL (0.6-1.0) Estimated GFR (Cockcroft-Gault) 47.4 BUN/Creatinine Ratio 15 (6-20) Glucose Level 120 mg/dL (70-99) Calcium Level 8.2 mg/dL (8.5-10.1) Total Bilirubin 0.3 mg/dL (0.2-1.0) Aspartate Amino Transf (AST/SGOT) 15 U/L (15-37) Alanine Aminotransferase (ALT/SGPT) 12 U/L (14-59) Alkaline Phosphatase 55 U/L (46-116) Total Protein 5.9 g/dL (6.4-8.2) Albumin 2.7 g/dL (3.4-5.0) Albumin/Globulin Ratio 0.8 (1.0-1.7) Laboratory Tests Test 10/28/16 04:55 White Blood Count 8.0 x10^3/uL (4.0-11.0) Red Blood Count 3.38 x10^6/uL (3.50-5.40) Hemoglobin 9.1 g/dL (12.0-15.5) Hematocrit 27.3 % (36.0-47.0) Mean Corpuscular Volume 81 fL (79-100) Mean Corpuscular Hemoglobin 27 pg (25-35) Mean Corpuscular Hemoglobin Concent 33 g/dL (31-37) Red Cell Distribution Width 14.3 % (11.5-14.5) Platelet Count 95 x10^3/uL (140-400) Neutrophils (%) (Auto) 79 % (31-73) Lymphocytes (%) (Auto) 12 % (24-48) Monocytes (%) (Auto) 8 % (0-9) Eosinophils (%) (Auto) 0 % (0-3) Basophils (%) (Auto) 0 % (0-3) Neutrophils # (Auto) 6.4 x10^3uL (1.8-7.7) Lymphocytes # (Auto) 0.9 x10^3/uL (1.0-4.8) Monocytes # (Auto) 0.7 x10^3/uL (0.0-1.1) Eosinophils # (Auto) 0.0 x10^3/uL (0.0-0.7) Basophils # (Auto) 0.0 x10^3/uL (0.0-0.2) Sodium Level 144 mmol/L (136-145) Potassium Level 4.3 mmol/L (3.5-5.1) Chloride Level 108 mmol/L (98-107) Carbon Dioxide Level 31 mmol/L (21-32) Anion Gap 5 (6-14) Blood Urea Nitrogen 17 mg/dL (7-20) Creatinine 1.1 mg/dL (0.6-1.0) Estimated GFR (Cockcroft-Gault) 47.4 BUN/Creatinine Ratio 15 (6-20) Glucose Level 120 mg/dL (70-99) Calcium Level 8.2 mg/dL (8.5-10.1) Total Bilirubin 0.3 mg/dL (0.2-1.0) Aspartate Amino Transf (AST/SGOT) 15 U/L (15-37) Alanine Aminotransferase (ALT/SGPT) 12 U/L (14-59) Alkaline Phosphatase 55 U/L (46-116) Total Protein 5.9 g/dL (6.4-8.2) Albumin 2.7 g/dL (3.4-5.0) Albumin/Globulin Ratio 0.8 (1.0-1.7) Medications Current Medications Fentanyl Citrate (Fentanyl 2ml Vial) 25 mcg PRN Q15MIN PRN IV PAIN GREATER THAN 3/10 Last administered on 10/25/16 20:18; Start 10/25/16 at 20:15; Stop at 20:45; Status DC Ondansetron HCl (Zofran) 4 mg PRN Q6HRS PRN IV NAUSEA/VOMITING Last administered on 10/27/16 00:27; Start 10/25/16 at 20:15; Stop 10/28/16 at 11:51 ; Status DC Fentanyl Citrate (Fentanyl 2ml Vial) 50 mcg PRN Q2HR PRN IV pain Last administered on 10/26/16 03:01; Start 10/25/16 at 20:15 Morphine Sulfate 2 mg PRN Q2HR PRN IV pain Last administered on 10/27/16 00:27 ; Start 10/25/16 at 20:15; Stop 10/28/16 at 11:48; Status DC Labetalol HCl (Normodyne) 10 mg PRN Q2HR PRN IVP 160/100; Start 10/25/16 at 20: 15; Stop 10/26/16 at 10:28; Status DC Acetaminophen (Tylenol) 650 mg DAILY PO Last administered on 10/28/16 09:03; Start 10/26/16 at 09:00 Diphenhydramine HCl (Benadryl) 25 mg HS PO Last administered on 10/27/16 21:03 ; Start 10/25/16 at 21:00 Lisinopril (Prinivil) 40 mg DAILY08 PO Last administered on 10/28/16 09:01; Start 10/26/16 at 08:00 Oxycodone HCl (OxyCONTIN) 10 mg BID PO Last administered on 10/28/16 09:03; Start 10/25/16 at 21:00 Pantoprazole Sodium (Protonix) 40 mg DAILYAC PO ; Start 10/26/16 at 07:30; Stop 10/26/16 at 07:30; Status DC Metoprolol Tartrate (Lopressor) 50 mg BID PO ; Start 10/25/16 at 21:00; Stop at 21:00; Status DC Pantoprazole Sodium (Protonix) 40 mg DAILYAC PO Last administered on 10/28/16 09:03; Start 10/26/16 at 07:30 Non-Formulary Medication 1 tab BID PO ; Start 10/25/16 at 21:00; Stop 10/25/16 at 21:00; Status DC Metoprolol Tartrate (Lopressor) 100 mg BID PO Last administered on 10/28/16 09 :02; Start 10/25/16 at 21:00 Ondansetron HCl (Zofran) 4 mg PRN Q8HRS PRN IV NAUSEA/VOMITING; Start 10/25/16 at 20:45; Stop 10/25/16 at 20:45; Status DC Fentanyl Citrate (Fentanyl 2ml Vial) 25 mcg PRN Q2HR PRN IV PAIN; Start at 20:45; Stop 10/25/16 at 20:45; Status DC Sodium Chloride 1,000 ml @ 75 mls/hr [id number] IV Last administered on 21:30; Start 10/25/16 at 21:00; Stop 10/26/16 at 11:14; Status DC Oxycodone HCl (Roxicodone) 10 mg PRN Q6HRS PRN PO PAIN Last administered on 21:02; Start 10/25/16 at 23:30 Oxycodone HCl (Roxicodone) 20 mg PRN Q6HRS PRN PO PAIN Last administered on 03:02; Start 10/25/16 at 23:30 Ondansetron HCl (Zofran) 4 mg PRN Q6HRS PRN IV NAUSEA/VOMITING; Start 10/26/16 at 07:30; Stop 10/27/16 at 07:40; Status DC Fentanyl Citrate (Fentanyl 2ml Vial) 25 mcg PRN Q5MIN PRN IV MILD PAIN; Start 10/26/16 at 07:30; Stop 10/27/16 at 07:40; Status DC Fentanyl Citrate (Fentanyl 2ml Vial) 50 mcg PRN Q5MIN PRN IV MODERATE PAIN Last administered on 10/26/16 23:45; Start 10/26/16 at 07:30; Stop 10/27/16 at 07:40; Status DC Morphine Sulfate 1 mg PRN Q10MIN PRN IV SEVERE PAIN; Start 10/26/16 at 07:30; Stop 10/27/16 at 07:40; Status DC Ringer's Solution 1,000 ml @ 30 mls/hr Q24H IV Last administered on 10/26/16 07:16; Start 10/26/16 at 07:16; Stop 10/26/16 at 19:15; Status DC Lidocaine HCl 2 ml PRN 1X PRN ID PRIOR TO IV START; Start 10/26/16 at 07:30; Stop 10/27/16 at 07:40; Status DC Hydromorphone HCl (Dilaudid) 0.5 mg PRN Q10MIN PRN IV SEV PAIN, Second choice; Start 10/26/16 at 07:30; Stop 10/27/16 at 07:40; Status DC Prochlorperazine Edisylate (Compazine) 5 mg PACU PRN PRN IV NAUSEA, MRX1 Last administered on 10/26/16 23:36; Start 10/26/16 at 07:30; Stop 10/27/16 at 07:40 ; Status DC Labetalol HCl (Normodyne) 20 mg PRN Q2HR PRN IVP 160/100 Last administered on 23:51; Start 10/26/16 at 10:30 Hydralazine HCl (Apresoline) 10 mg PRN Q4HRS PRN IVP ELEVATED BP, SEE COMMENTS ; Start 10/26/16 at 10:30 Potassium Chloride/Dextrose/ Sod Cl 1,000 ml @ 100 mls/hr Q10H IV Last administered on 10/27/16 17:30; Start 10/26/16 at 11:30; Stop 10/28/16 at 13:12 ; Status DC Ropivacaine 53.3 ml/Epinephrine HCl 0.6 mg/ Morphine Sulfate 5 mg/Sodium Chloride 100 ml @ 100 mls/hr 1X PERIOP ONCE INT ART Last administered on 10/26t 22:13; Start 10/26/16 at 18:45; Stop 10/26/16 at 19:44; Status DC Dexamethasone Sodium Phosphate (Decadron) 20 mg STK-MED ONCE .ROUTE ; Start at 20:23; Stop 10/26/16 at 20:24; Status DC Ondansetron HCl (Zofran) 4 mg STK-MED ONCE .ROUTE ; Start 10/26/16 at 20:23; Stop 10/26/16 at 20:24; Status DC Propofol 20 ml @ As Directed STK-MED ONCE IV ; Start 10/26/16 at 20:23; Stop at 20:24; Status DC Lidocaine HCl (Lidocaine Pf 2% Vial) 5 ml STK-MED ONCE .ROUTE ; Start 10/26/16 at 20:23; Stop 10/26/16 at 20:24; Status DC Fentanyl Citrate (Fentanyl 2ml Vial) 100 mcg STK-MED ONCE .ROUTE ; Start at 20:23; Stop 10/26/16 at 20:24; Status DC Ketorolac Tromethamine (Toradol For Or Only) 60 mg STK-MED ONCE .ROUTE ; Start 10/26/16 at 20:38; Stop 10/26/16 at 20:39; Status DC Ephedrine Sulfate (Akovaz) 50 mg STK-MED ONCE .ROUTE ; Start 10/26/16 at 20:44; Stop 10/26/16 at 20:45; Status DC Cefazolin Sodium 100 ml @ As Directed STK-MED ONCE IV ; Start 10/26/16 at 21:36 ; Stop 10/26/16 at 21:37; Status DC Phenylephrine HCl 1 mg STK-MED ONCE IV ; Start 10/26/16 at 22:03; Stop 10/26/16 at 22:04; Status DC Fentanyl Citrate (Fentanyl 2ml Vial) 100 mcg STK-MED ONCE .ROUTE ; Start at 22:35; Stop 10/26/16 at 22:36; Status DC Oxycodone HCl (Roxicodone) 5 mg PRN Q3HRS PRN PO PAIN; Start 10/26/16 at 23:30 Morphine Sulfate 2 mg PRN Q1HR PRN IV PAIN; Start 10/26/16 at 23:30 Fentanyl Citrate (Fentanyl 2ml Vial) 25 mcg PRN Q1HR PRN IV PAIN; Start at 23:30 Senna/Docusate Sodium (Senna Plus) 1 tab DAILY PO Last administered on 09:03; Start 10/27/16 at 09:00 Polyethylene Glycol (miraLAX PACKET) 17 gm PRN DAILY PRN PO CONSTIPATION; Start 10/26/16 at 23:30 Vitamin D (Vitamin D3) 1,000 unit DAILY PO ; Start 10/27/16 at 09:00; Stop 10/27 at 09:00; Status DC Ondansetron HCl (Zofran) 4 mg PRN Q4HRS PRN IV NAUSEA/VOMITING; Start 10/26/16 at 23:30 Aspirin (Cherelle Aspirin) 325 mg BID PO Last administered on 10/28/16 09:01; Start 10/27/16 at 09:00 Magnesium Hydroxide (Milk Of Magnesia) 2,400 mg 1X PRN PRN PO CONSTIPATION Last administered on 10/27/16 10:10; Start 10/27/16 at 06:00; Stop 10/28/16 at 05:59; Status DC Bisacodyl (Dulcolax Supp) 10 mg 1X PRN PRN MT CONSTIPATION; Start 10/27/16 at 16:00; Stop 10/28/16 at 15:59 Acetaminophen/ Hydrocodone Bitart (Lortab 7.5/325) 1 tab PRN Q4HRS PRN PO PAIN Last administered on 10/27/16 15:25; Start 10/26/16 at 23:30 Morphine Sulfate 4 mg PRN Q2HR PRN IV PAIN; Start 10/26/16 at 23:30 Acetaminophen/ Hydrocodone Bitart (Lortab 7.5/325) 2 tab PRN Q4HRS PRN PO PAIN ; Start 10/26/16 at 23:30 Dextrose (Dextrose 50%-Water Syringe) 12.5 gm PRN Q15MIN PRN IV SEE COMMENTS; Start 10/26/16 at 23:30 Cefazolin Sodium 1 gm/Sodium Chloride 50 ml @ 100 mls/hr Q6H IV Last administered on 10/27/16 12:00; Start 10/27/16 at 00:00; Stop 10/27/16 at 12:29 ; Status DC Vitamin D (Vitamin D3) 5,000 unit DAILY PO Last administered on 10/28/16 09:03 ; Start 10/27/16 at 09:00 Ergocalciferol (Vitamin D2) 50,000 unit WEEKLY PO ; Start 11/02/16 at 09:00 Prochlorperazine Edisylate (Compazine) 10 mg STK-MED ONCE .ROUTE ; Start at 23:32; Stop 10/26/16 at 23:33; Status DC Fentanyl Citrate (Fentanyl 2ml Vial) 100 mcg STK-MED ONCE .ROUTE ; Start at 23:54; Stop 10/26/16 at 23:55; Status DC Polyethylene Glycol (miraLAX PACKET) 17 gm 1X ONCE PO Last administered on t 11:45; Start 10/27/16 at 11:45; Stop 10/27/16 at 11:46; Status DC Polyethylene Glycol (miraLAX PACKET) 17 gm PRN DAILY PRN PO CONSTIPATION; Start 10/27/16 at 11:45 Enoxaparin Sodium (Lovenox 40mg Syringe) 40 mg Q24H SQ ; Start 10/27/16 at 18:00 Active Scripts Active Reported Pantoprazole Sodium 40 Mg Tablet.dr 1 Tab PO DAILY08 Lisinopril 40 Mg Tablet 1 Tab PO DAILY08 Oxycodone Hcl 10 Mg Tablet 1-2 Tab PO PRN QID PRN Tylenol (Acetaminophen) 325 Mg Tablet 650 Mg PO DAILY Oxycontin (Oxycodone HCl) 10 Mg Tab.er.12h 1 Tab PO BID Omeprazole 20 Mg Tablet.dr 20 Mg PO DAILY Metoprolol Tartrate 100 Mg Tablet 100 Mg PO BID Diphenhydramine Hcl 25 Mg Capsule 25 Mg PO HS Vitals/I & O Vital Sign - Last 24 Hours 10/27/16 10/27/16 10/27/16 10/27/16 15:25 16:49 19:00 20:00 Temp 97.9 97.9 Pulse 72 Resp 16 18 B/P (MAP) 150/65 (93) Pulse Ox 96 O2 Delivery Room Air Nasal Cannula Room Air Nasal Cannula O2 Flow Rate 2.0 2.0 10/27/16 10/27/16 10/27/16 8/29/17 21:01 21:02 21:03 22:02 Pulse 72 Resp 16 16 16 B/P (MAP) 150/65 O2 Delivery Nasal Cannula Room Air Nasal Cannula O2 Flow Rate 2.0 2.0 10/27/16 10/28/16 10/28/16 10/28/16 23:15 01:22 03:50 07:55 Temp 97.7 97.6 96.5 97.7 97.6 96.5 Pulse 71 65 72 Resp 18 16 18 20 B/P (MAP) 132/63 (86) 161/61 (94) 156/61 (92) Pulse Ox 94 98 90 O2 Delivery Nasal Cannula Room Air Room Air O2 Flow Rate 2.0 2.0 10/28/16 10/28/16 10/28/16 10/28/16 08:10 09:01 09:02 09:03 Pulse 65 65 B/P (MAP) 161/61 161/61 O2 Delivery Nasal Cannula Room Air O2 Flow Rate 2.0 10/28/16 10/28/16 10/28/16 10:59 13:04 14:55 Temp 97.5 97.3 97.5 97.3 Pulse 54 70 Resp 18 18 B/P (MAP) 115/54 (74) 117/38 (64) Pulse Ox 91 95 O2 Delivery Room Air Room Air Room Air MIGUELITO TELLO MD Oct 28, 2016 15:25
[2016-10-28] MEDS: ENOXAPARIN 40 MG/0.4 ML SYRINGE. SQ SCH (18:14)
[2016-10-28 19:49] VITALS: BP 144/88
[2016-10-28] MEDS: oxyCODONE IR 5 MG TABLET PO PRN (19:56)
[2016-10-28] MEDS: diphenhydrAMINE HCL 25 MG CAPSULE PO SCH (20:34)
[2016-10-28 23:20] VITALS: BP 141/63
[2016-10-29] MEDS: oxyCODONE IR 5 MG TABLET PO PRN (02:31)
[2016-10-29 03:58] VITALS: BP 128/63
[2016-10-29] MEDS: PANTOPRAZOLE 40 MG TABLET.DR. PO SCH (06:27)
[2016-10-29 07:00] VITALS: BP 149/65
[2016-10-29] MEDS: ASPIRIN 325 MG TABLET PO SCH (08:49)
[2016-10-29] MEDS: SENNOSIDES/DOCUSATE 8.6/50MG TABLET. PO SCH (08:50)
[2016-10-29] MEDS: LISINOPRIL 40 MG TABLET. PO SCH (08:50)
[2016-10-29] MEDS: ACETAMINOPHEN 325 MG TABLET. PO SCH (08:50)
[2016-10-29] MEDS: CHOLECALCIFEROL (VITAMIN D3) 1,000 UNIT TABLET PO SCH (08:51)
[2016-10-29] MEDS: oxyCODONE ER 10 MG TAB.ER.12H PO SCH (08:51)
[2016-10-29] MEDS: METOPROLOL TART IMMED RELEASE 50 MG TABLET. PO SCH (08:54)
[2016-10-29 11:00] VITALS: BP 123/66
[2016-10-29] MEDS ORDERED: ERGOCALCIFEROL (VITAMIN D2) 50,000 UNIT CAPSULE. PO SCH (11:30)
[2016-10-29] MEDS ORDERED: HYDR-2762 PO (11:32)
[2016-10-29] MEDS ORDERED: OXYC10TA45 PO (11:34)
[2016-10-29] MEDS: HYDROcodone/APAP 7.5/325MG 1 TAB TABLET PO PRN (13:51)
--- NOTE | 2016-10-29 14:03 | PDOC ---
PROGRESS NOTES Subjective Subjective Doing okay, pain is controlled. Feels weak. States she is going to [facility] today. Objective Vital Signs Vital Signs Date Time Temp Pulse Resp B/P (MAP) Pulse Ox O2 Delivery O2 Flow Rate FiO2 10/29/16 13:51 Room Air 10/29/16 11:00 97.6 67 18 123/66 (85) 92 97.6 10/29/16 03:35 2.0 Physical Exam Sitting up in recliner. I assisted her into bed, which took quite a bit of effort. Aquacel dressing dry and intact. Calf soft and nontender with negative Rosie's sign. Good df/pf. Peripheral pulses and light touch sensation intact. Labs Laboratory Tests Test 10/28/16 04:55 White Blood Count 8.0 x10^3/uL (4.0-11.0) Red Blood Count 3.38 x10^6/uL (3.50-5.40) Hemoglobin 9.1 g/dL (12.0-15.5) Hematocrit 27.3 % (36.0-47.0) Mean Corpuscular Volume 81 fL (79-100) Mean Corpuscular Hemoglobin 27 pg (25-35) Mean Corpuscular Hemoglobin Concent 33 g/dL (31-37) Red Cell Distribution Width 14.3 % (11.5-14.5) Platelet Count 95 x10^3/uL (140-400) Neutrophils (%) (Auto) 79 % (31-73) Lymphocytes (%) (Auto) 12 % (24-48) Monocytes (%) (Auto) 8 % (0-9) Eosinophils (%) (Auto) 0 % (0-3) Basophils (%) (Auto) 0 % (0-3) Neutrophils # (Auto) 6.4 x10^3uL (1.8-7.7) Lymphocytes # (Auto) 0.9 x10^3/uL (1.0-4.8) Monocytes # (Auto) 0.7 x10^3/uL (0.0-1.1) Eosinophils # (Auto) 0.0 x10^3/uL (0.0-0.7) Basophils # (Auto) 0.0 x10^3/uL (0.0-0.2) Sodium Level 144 mmol/L (136-145) Potassium Level 4.3 mmol/L (3.5-5.1) Chloride Level 108 mmol/L (98-107) Carbon Dioxide Level 31 mmol/L (21-32) Anion Gap 5 (6-14) Blood Urea Nitrogen 17 mg/dL (7-20) Creatinine 1.1 mg/dL (0.6-1.0) Estimated GFR (Cockcroft-Gault) 47.4 BUN/Creatinine Ratio 15 (6-20) Glucose Level 120 mg/dL (70-99) Calcium Level 8.2 mg/dL (8.5-10.1) Total Bilirubin 0.3 mg/dL (0.2-1.0) Aspartate Amino Transf (AST/SGOT) 15 U/L (15-37) Alanine Aminotransferase (ALT/SGPT) 12 U/L (14-59) Alkaline Phosphatase 55 U/L (46-116) Total Protein 5.9 g/dL (6.4-8.2) Albumin 2.7 g/dL (3.4-5.0) Albumin/Globulin Ratio 0.8 (1.0-1.7) Assessment Assessment POD #3 right hip IM nail Problems: Plan Plan of Care Continue DVT ppx and therapy. May WBAT with walker. Discharge to [facility] this afternoon. Followup in 10-14 days. ANGLE CHAPMAN Oct 29, 2016 14:02
[2016-11-02] MEDS ORDERED: ERGOCALCIFEROL (VITAMIN D2) 50,000 UNIT CAPSULE. PO SCH (09:00)
== END 2016-10-29 15:10 | DRG 481 ==
LOC: ER 18:50 → 4 NORTH 19:50
PROVIDERS: ADMIT Internal Medicine; ATTEND Internal Medicine
PROC: 0QS606Z Reposition Right Upper Femur with Intramedullary Internal Fixation Device, Open Approach (ICD-10-PCS; principal; 2016-10-26 19:45)
DX: S72.141A Displaced intertrochanteric fracture of right femur, initial encounter for closed fracture (principal); I50.32 Chronic diastolic (congestive) heart failure; D64.9 Anemia, unspecified; I11.0 Hypertensive heart disease with heart failure; E78.5 Hyperlipidemia, unspecified; K57.90 Diverticulosis of intestine, part unspecified, without perforation or abscess without bleeding; M19.90 Unspecified osteoarthritis, unspecified site; K21.9 Gastro-esophageal reflux disease without esophagitis; K59.00 Constipation, unspecified; Z96.652 Presence of left artificial knee joint; Z90.49 Acquired absence of other specified parts of digestive tract; Z90.710 Acquired absence of both cervix and uterus; Z98.49 Cataract extraction status, unspecified eye; Z88.8 Allergy status to other drugs, medicaments and biological substances; Z82.49 Family history of ischemic heart disease and other diseases of the circulatory system; Z80.42 Family history of malignant neoplasm of prostate; W01.0XXA Fall on same level from slipping, tripping and stumbling without subsequent striking against object, initial encounter; Y92.002 Bathroom of unspecified non-institutional (private) residence as the place of occurrence of the external cause; Y99.8 Other external cause status; Y93.89 Activity, other specified
CPT/HCPCS: 36415; 51702; 71010; 73502; 76000; 80048; 80053; 82306; 82553; 83735; 84443; 84484; 85007; 85014; 85018; 85025; 85610; 87641; 93005; 96374; A4215; C1713; C1887; J0171; J0690; J0780; J1100; J1650; J1885; J2270; J2370; J2405; J2704; J2795; J3010; J3490; J7030; J7120; Q0163; 97110; 97116; 97530; 97535; 99285-25; J2001